=== PATIENT | female | born 1955 | race Caucasian/White ===

== ENCOUNTER 2016-02-29 04:20 | Inpatient (IN) | payer BC ==
[2016-02-29] MEDS ORDERED: MAGNESIUM SULFATE-D5W PMX 1 GM in DEXTROSE/WATER 1 100ML.BAG IVPB STA (04:26)
[2016-02-29] MEDS ORDERED: methylPREDNISolone SOD SUCCI 125 MG/2 ML VIAL IV STA (04:26)
[2016-02-29] MEDS ORDERED: IPRATROPIUM-ALBUTEROL 3 ML NEB INHALATION STA (04:26)
[2016-02-29] MEDS ORDERED: SODIUM CHLORIDE 0.9% 1,000 ML IV STA (04:26)
--- NOTE | 2016-02-29 04:30 | ED ---
SOB HPI - General Stated Complaint: RENZO Time Seen by Provider: 02/29/16 04:20 Source: patient, EMS, RN notes reviewed, old records reviewed - History of Present Illness Initial Comments: This is a 61-year-old female history of COPD who states she quit smoking about 2 or 3 weeks ago but still is had an occasional cigarette also has a history of elevated cholesterol hypothyroidism and hypertension who states she's had shortness of breath with difficulty breathing. She states she was in the emergency department 2 days ago for a number of hours and discharged to home medications which she has taken she states tonight that she's got severe cough shortness of breath chills and some sweats cough is associated dry. She also some chest discomfort from the cough she states she was brought in by EMS. She states she's feeling only slight improvement after the nebulizer treatment that was given. MD Complaint: shortness of breath, cough - Related Data Home Medications Medication Instructions Recorded Confirmed Atorvastatin [Lipitor] 40 mg PO QAM 09/21/13 02/27/16 Levothyroxine Sodium [Synthroid] 175 mcg PO QAM 09/21/13 02/27/16 Lisinopril-Hctz 10-12.5 mg 1 tab PO QAM 11/27/14 02/27/16 [Zestoretic 10-12.5] Previous Rx's Medication Instructions Recorded Albuterol Inhaler [Ventolin Hfa 2 puff INHALATION Q4HR PRN #1 12/13/15 Inhaler] inhaler predniSONE 20 mg PO BID #10 tab 12/13/15 Albuterol Nebulized [Ventolin 2.5 mg INHALATION Q4H PRN #25 nebu 02/27/16 Nebulized] Albuterol Sulfate [Proair Hfa] 1 - 2 puff INHALATION Q4H PRN #1 02/27/16 inhaler predniSONE 50 mg PO DAILY #5 tab 02/27/16 Allergies Allergy/AdvReac Type Severity Reaction Status Date / Time No Known Allergies Allergy Verified 02/27/16 05:58 Review of Systems ROS Statement: Those systems with pertinent positive or pertinent negative responses have been documented in the HPI. ROS Other: All systems not noted in ROS Statement are negative. Past Medical History Past Medical History: Hyperlipidemia, Hypertension, Thyroid Disorder History of Any Multi-Drug Resistant Organisms: None Reported Past Surgical History: Cholecystectomy, Orthopedic Surgery, Tonsillectomy Additional Past Surgical History / Comment(s): THYROIDECTOMY. Past Anesthesia/Blood Transfusion Reactions: Motion Sickness, Postoperative Nausea & Vomiting (PONV) Past Psychological History: No Psychological Hx Reported Smoking Status: Current every day smoker Past Alcohol Use History: None Reported Past Drug Use History: None Reported - Past Family History Brother(s) Family Medical History: Cancer Sister(s) Family Medical History: Cancer General Exam - General Exam Comments Initial Comments: This a well-developed well-nourished awake alert oriented 3 female General appearance: alert, anxious, in distress Head exam: Present: atraumatic, normocephalic, normal inspection Eye exam: Present: normal appearance, PERRL, EOMI. Absent: scleral icterus, conjunctival injection, periorbital swelling ENT exam: Present: normal exam, mucous membranes moist Neck exam: Present: normal inspection. Absent: tenderness, meningismus, lymphadenopathy Respiratory exam: Present: respiratory distress, wheezes, decreased breath sounds. Absent: rales, rhonchi, stridor, chest wall tenderness Cardiovascular Exam: Present: normal rhythm, tachycardia, normal heart sounds. Absent: systolic murmur, diastolic murmur, rubs, gallop, clicks GI/Abdominal exam: Present: soft, normal bowel sounds. Absent: distended, tenderness, guarding, rebound, rigid Extremities exam: Present: normal inspection, full ROM, normal capillary refill. Absent: tenderness, pedal edema, joint swelling, calf tenderness Back exam: Present: normal inspection Neurological exam: Present: alert, oriented X3, CN II-XII intact Psychiatric exam: Present: normal affect, normal mood Skin exam: Present: warm, dry, intact, normal color. Absent: rash Course Vital Signs 02/29/16 02/29/16 02/29/16 04:24 05:15 05:26 Temperature 97.2 F L Pulse Rate 111 H 99 104 H Respiratory 20 Rate Blood Pressure 154/82 O2 Sat by Pulse 94 L Oximetry 02/29/16 02/29/16 05:37 06:00 Temperature Pulse Rate 101 H 96 Respiratory 16 18 Rate Blood Pressure 145/65 136/77 O2 Sat by Pulse 95 96 Oximetry - Reevaluation(s) Reevaluation #1: 02/29/16 07:25 Reevaluation patient reveals her to feeling somewhat better she denies any chest pain. Reevaluation #2: 02/29/16 07:26 CAT scan shows no evidence of acute pulmonary embolism there is evidence of pulmonary vascular congestion however consistent with congestive heart failure. Medical Decision Making - Medical Decision Making I did reevaluate the patient several occasions I did a long discussion with her and her family regarding the findings. Patient be admitted for evaluation by cardiology. - Lab Data Result diagrams: 02/29/16 04:31 02/29/16 04:31 Lab Results 02/29/16 02/29/16 02/29/16 Range/Units 04:31 04:31 04:31 WBC 10.8 H (3.8-10.6) k/uL RBC 4.04 (3.80-5.40) m/uL Hgb 11.7 (11.4-16.0) gm/dL Hct 35.1 (34.0-46.0) % MCV 87.0 (80.0-100.0) fL MCH 28.9 (25.0-35.0) pg MCHC 33.2 (31.0-37.0) g/dL RDW 13.7 (11.5-15.5) % Plt Count 286 (150-450) k/uL Neutrophils % 84 % Lymphocytes % 10 % Monocytes % 4 % Eosinophils % 1 % Basophils % 0 % Neutrophils # 9.1 H (1.3-7.7) k/uL Lymphocytes # 1.0 (1.0-4.8) k/uL Monocytes # 0.4 (0-1.0) k/uL Eosinophils # 0.1 (0-0.7) k/uL Basophils # 0.0 (0-0.2) k/uL PT (9.0-12.0) sec INR (<1.1) APTT (22.0-30.0) sec D-Dimer (<0.60) mg/L FEU Sodium 143 (137-145) mmol/L Potassium 3.8 (3.5-5.1) mmol/L Chloride 109 H (98-107) mmol/L Carbon Dioxide 25 (22-30) mmol/L Anion Gap 9 mmol/L BUN 19 H (7-17) mg/dL Creatinine 1.00 (0.52-1.04) mg/dL Est GFR (MDRD) Af Amer >60 (>60 ml/min/1.73 sqM) Est GFR (MDRD) Non-Af 56 (>60 ml/min/1.73 sqM) Glucose 109 H (74-99) mg/dL Calcium 8.7 (8.4-10.2) mg/dL Magnesium 1.9 (1.6-2.3) mg/dL Total Bilirubin 0.3 (0.2-1.3) mg/dL AST 36 (14-36) U/L ALT 40 (9-52) U/L Alkaline Phosphatase 83 (38-126) U/L Total Creatine Kinase 81 (30-135) U/L CK-MB (CK-2) 1.0 (0.0-2.4) ng/mL CK-MB (CK-2) Rel Index 1.2 Troponin I <0.012 (0.000-0.034) ng/mL NT-Pro-B Natriuret Pep pg/mL Total Protein 6.2 L (6.3-8.2) g/dL Albumin 3.8 (3.5-5.0) g/dL 02/29/16 02/29/16 Range/Units 04:31 04:31 WBC (3.8-10.6) k/uL RBC (3.80-5.40) m/uL Hgb (11.4-16.0) gm/dL Hct (34.0-46.0) % MCV (80.0-100.0) fL MCH (25.0-35.0) pg MCHC (31.0-37.0) g/dL RDW (11.5-15.5) % Plt Count (150-450) k/uL Neutrophils % % Lymphocytes % % Monocytes % % Eosinophils % % Basophils % % Neutrophils # (1.3-7.7) k/uL Lymphocytes # (1.0-4.8) k/uL Monocytes # (0-1.0) k/uL Eosinophils # (0-0.7) k/uL Basophils # (0-0.2) k/uL PT 9.4 (9.0-12.0) sec INR 0.9 (<1.1) APTT 24.8 (22.0-30.0) sec D-Dimer 1.21 H (<0.60) mg/L FEU Sodium (137-145) mmol/L Potassium (3.5-5.1) mmol/L Chloride (98-107) mmol/L Carbon Dioxide (22-30) mmol/L Anion Gap mmol/L BUN (7-17) mg/dL Creatinine (0.52-1.04) mg/dL Est GFR (MDRD) Af Amer (>60 ml/min/1.73 sqM) Est GFR (MDRD) Non-Af (>60 ml/min/1.73 sqM) Glucose (74-99) mg/dL Calcium (8.4-10.2) mg/dL Magnesium (1.6-2.3) mg/dL Total Bilirubin (0.2-1.3) mg/dL AST (14-36) U/L ALT (9-52) U/L Alkaline Phosphatase (38-126) U/L Total Creatine Kinase (30-135) U/L CK-MB (CK-2) (0.0-2.4) ng/mL CK-MB (CK-2) Rel Index Troponin I (0.000-0.034) ng/mL NT-Pro-B Natriuret Pep 1740 pg/mL Total Protein (6.3-8.2) g/dL Albumin (3.5-5.0) g/dL - EKG Data -: EKG Interpreted by Ks EKG shows normal: sinus rhythm (Sinus tachycardia with rate 104. Ago 170 QRS duration 146 daily since QTC of 394/518 a bundle-branch block pattern no acute ST-T wave changes) - Radiology Data Radiology results: report reviewed (Evaluation CAT scan x-ray show evidence of congestive failure no pulmonary embolism.), image reviewed Critical Care Time Critical Care Time: Yes Critical Care Time: 37 minutes of critical care time which includes initial monitoring the EMS call as well as discussed with paramedics. Evaluation patient with history physical lab and x-ray as well as CAT scan evaluation. Reevaluation of the patient on multiple occasions. Discussion with patient family admission orders discussed with the admitting physician documentation of the above. Disposition Clinical Impression: Congestive heart failure, Adult respiratory distress syndrome, Acute exacerbation of chronic obstructive airways disease Disposition: ADMITTED IP TO THIS HOSP Condition: Stable
[2016-02-29 04:48] LABS: Basophils % (A) 0 %; CH 28.9; CHCM 33.4; Eosinophils # (A) 0.1 k/uL (0-0.7); Eosinophils % (A) 1 %; HCT 35.1 % (34.0-46.0); HGB 11.7 gm/dL (11.4-16.0); Luc # (Auto) 0.13; Luc % (Auto) 1; Lymphocytes % (A) 10 %; MCH 28.9 pg (25.0-35.0); MCHC 33.2 g/dL (31.0-37.0); Mean Platelet Volume 6.3; Monocytes # (A) 0.4 k/uL (0-1.0); Monocytes % (A) 4 %; Neutrophils # (A) 9.1 k/uL (1.3-7.7); Neutrophils % (A) 84 %; RBC 4.04 m/uL (3.80-5.40); RDW 13.7 % (11.5-15.5); WBC 10.8 k/uL (3.8-10.6); WBC (Perox) 10.89
[2016-02-29 05:08] LABS: ALT 40 U/L (9-52); AST 36 U/L (14-36); Alkaline Phosphatase 83 U/L (38-126); Anion Gap 9 mmol/L; Blood Urea Nitrogen 19 mg/dL (7-17); Calcium 8.7 mg/dL (8.4-10.2); Carbon Dioxide 25 mmol/L (22-30); Chloride 109 mmol/L (98-107); Glucose 109 mg/dL (74-99); Magnesium 1.9 mg/dL (1.6-2.3); Non-African American GFR(MDRD) 56 (>60 ml/min/1.73 sqM); Potassium 3.8 mmol/L (3.5-5.1); Sodium 143 mmol/L (137-145); Total Bilirubin 0.3 mg/dL (0.2-1.3); Total Protein 6.2 g/dL (6.3-8.2)
[2016-02-29 05:09] LABS: INR 0.9 (<1.1); Partial Thromboplastin Time 24.8 sec (22.0-30.0); Prothrombin Time 9.4 sec (9.0-12.0)
[2016-02-29 05:22] LABS: Creatine Kinase 81 U/L (30-135)
[2016-02-29 05:35] LABS: Troponin I <0.012 ng/mL (0.000-0.034)
--- NOTE | 2016-02-29 05:42 | XR ---
EXAMINATION TYPE: XR chest 2V DATE OF EXAM: 02/29/2016 5:15 AM COMPARISON: 02/27/2016 HISTORY: Difficulty breathing TECHNIQUE: Frontal and lateral views of the chest are obtained. FINDINGS: Heart is slightly enlarged. There is some pulmonary vascular congestion and pulmonary inte rstitial edema. There is slight blunting of the costophrenic angles. IMPRESSION: There is new pulmonary interstitial edema compared to last exam that could relate to acu te heart failure.
[2016-02-29] MEDS ORDERED: RX INFO: IV CONTRAST WAS GIVEN 1 EACH MISC MISCELLANE PRN (06:26)
--- NOTE | 2016-02-29 06:59 | CT ---
EXAMINATION TYPE: CT angio chest DATE OF EXAM: 02/29/2016 6:43 AM COMPARISON: NONE HISTORY: Elevated D-dimer CT DLP: 660 mGycm Automated exposure control for dose reduction was used. CONTRAST: CTA scan of the thorax is performed with IV Contrast, patient injected with 80 mL of Omnipaque 350, p ulmonary embolism protocol. MIP images are created and reviewed. 3D reconstructed images are create d on an independent workstation and reviewed. FINDINGS: There are bilateral pleural effusions. There is a small pericardial effusion. Heart is enlarged. Ther e is pulmonary interstitial edema with thickening of the interlobular septa. There is normal contrast opacification of the pulmonary arteries. I see no filling defects. There is no evidence of aortic an eurysm or dissection. There is no mediastinal adenopathy. There are no hilar masses. IMPRESSION: NO EVIDENCE OF PULMONARY EMBOLISM. PULMONARY INTERSTITIAL EDEMA AND BILATERAL PLEURAL EFFUSIONS CONSI STENT WITH CONGESTIVE HEART FAILURE. SMALL PERICARDIAL EFFUSION.
[2016-02-29] MEDS ORDERED: SODIUM CHLORIDE 0.9% 1,000 ML IV SCH (07:30)
[2016-02-29] MEDS ORDERED: HEPARIN SODIUM,PORCINE 5,000 UNIT/ML 1 ML VIAL SQ SCH (08:00)
[2016-02-29] MEDS ORDERED: IPRATROPIUM-ALBUTEROL 3 ML NEB INHALATION SCH (08:00)
[2016-02-29] MEDS ORDERED: FUROSEMIDE 10 MG/ML 4 ML VIAL IV SCH (08:00)
[2016-02-29] MEDS ORDERED: NITROGLYCERIN OINT 1 INCH/GM PACKET TOPICAL SCH (09:00)
[2016-02-29] MEDS: IPRATROPIUM-ALBUTEROL 3 ML NEB INHALATION SCH ×3 (11:57→20:05)
[2016-02-29] MEDS: ATORVASTATIN 40 MG TAB PO SCH (12:21)
[2016-02-29] MEDS: LISINOPRIL-HCTZ 10-12.5 MG 1 EACH TAB PO SCH (12:21)
[2016-02-29] MEDS: LEVOTHYROXINE 100 MCG TAB PO SCH ×2 (12:21→13:22)
[2016-02-29] MEDS: ASPIRIN 81 MG CHEW PO SCH (12:21)
[2016-02-29] MEDS: methylPREDNISolone SOD SUCCI 125 MG/2 ML VIAL IV SCH ×3 (12:22→23:55)
[2016-02-29] MEDS: LEVOTHYROXINE 75 MCG TAB PO SCH ×2 (12:22→13:22)
[2016-02-29] MEDS: AZITHROMYCIN 500 MG in SODIUM CHLORIDE 0.9% 250 ML IVPB SCH (13:23)
[2016-02-29] MEDS: HEPARIN SODIUM,PORCINE 5,000 UNIT/ML 1 ML VIAL SQ SCH ×2 (16:00→23:55)
--- NOTE | 2016-02-29 16:04 | HP ---
DATE OF ADMISSION: CHIEF COMPLAINT: Shortness of breath and chest pain. HISTORY OF PRESENT ILLNESS: This is a 61-year-old female with past medical history significant for COPD, presents to the hospital with shortness of breath and new onset chest pain. 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 Appropriate imaging was done and patient was prescribed prednisone 50 mg once daily for 5 days along with albuterol inhaler and nebulizer treatment and was discharged home. The patient felt worsening cough, felt that prednisone helped a little bit, but on Tuesday night she started having some chest tightness, which she felt at the beginning to be related to her ongoing cough, but patient felt that the shortness of breath and the chest pain is too much to tolerate at home and presented to the emergency department. In the emergency department, her d-dimer was elevated and CT of the chest was done which showed no evidence of pulmonary embolism with the pulmonary interstitial edema and bilateral pleural effusion consistent with congestive heart failure with small pericardial effusion. Chest x-ray showed new pulmonary interstitial edema compared to last exam that could relate to acute heart failure. Patient said that since Tuesday she has been able to do sleep in the normal position which is on her left or right side as patient had chronic back pain and cannot sleep on her back. Said that her sleep was interrupted by spells of coughing where she was unable to bring any phlegm up and said that this most likely dry hacking cough. The patient has been in contact with sick people. Denied any recent history of pneumonia, but said that she had exacerbation of her chronic obstructive pulmonary disease back in November where she was given the diagnosis by her primary care physician, Dr. Bella. Patient denied any fever or chills. Denied any nausea, vomiting, abdominal pain, change in bowel movement, change in the urine color or stool color. REVIEW OF SYSTEMS: All 14 systems reviewed and negative except as above. HOME MEDICATIONS: 1. Lipitor 40 mg p.o. daily. 2. Synthroid 175 micrograms p.o. daily. 3. Lisinopril with hydrochlorothiazide 10/12.5 p.o. daily. 4. Recent medication diagnosed prescribed by emergency department as mentioned above. ALLERGIES: No known drug allergies. PAST MEDICAL AND SURGICAL HISTORY: 1. Hypertension. 2. Hyperlipidemia. 3. Hypothyroidism. 4. Cholecystectomy. 5. Orthopedic surgery. 6. Tonsillectomy. 7. Thyroidectomy. 8. Motion sickness. SOCIAL HISTORY: Patient has been a smoker for 36 years and recently has been going down to 2 cigarettes a day and trying hard to quit. No alcohol or drug abuse. FAMILY HISTORY: Significant for coronary artery disease in her father who at age 57 and her brother with heart attack age 41, her other brother who had heart attack recently but of cancer. PHYSICAL EXAMINATION: VITAL SIGNS: 97.2, heart rate of 99, respiratory rate 20, blood pressure 154/82, saturation is 94% on room air. GENERAL: Her stated age, obese in no acute distress. HEENT: Atraumatic, normocephalic. PERRLA. LUNGS: Diminished bilaterally with decreased air entry, fine crackles on the bibasilar bases. EXTREMITIES: Lower extremity no edema. SKIN: No new rash. PSYCH: Alert and oriented x3. ABDOMEN: Soft, no tenderness, positive bowel sounds in all 4 quadrants. NEURO: No focal deficit. Cranial nerves II through XII are intact. Normal deep tendon reflexes and sensation. SKIN: No obvious rash. ASSESSMENT AND PLAN: 1. Dyspnea with multifactorial etiology including chronic obstructive pulmonary disease exacerbation along with congestive heart failure exacerbation. The patient with no previous history of congestive heart failure, but her chest x-ray, blood work and suggestive for of fluid overload status. I would like to start patient on Lasix. Consult cardiology and optimize her medical management. Obtain 2-D echo and monitor her I's and O's and daily weight. Other etiology could be related to chronic obstructive pulmonary disease exacerbation. Patient responded well to prednisone. I would like to switch her to Solu-Medrol during her hospital stay to have faster response and switch her to oral steroids upon discharge to home. I would like to start patient on Z-Matias given her persistent cough and obtain sputum culture if possible. 2. Chronic obstructive pulmonary disease with exacerbation as above. 3. Congestive heart failure exacerbation as above. 4. Hypertension. We will continue with home medication goal for less than 140/90 during the hospital stay. 5. Hyperlipidemia. We will continue statin and check a lipid panel. 6. Hypothyroidism. Will check on TSH and continue her home Synthroid dose. 7. Obesity. Patient counseled regarding weight loss and healthy lifestyle. 8. Tobacco dependency. Patient counseled regarding smoking cessation and said that she is ready to quit on . 9. Mild leukocytosis. We will continue monitoring. 10. Discharge planning based on clinical progress.
--- NOTE | 2016-02-29 16:24 | CONS ---
DATE OF CONSULTATION: ATTENDING: Dr. Bella. Mrs. Ceja is a 61-year-old female with known history of hypertension, hyperlipidemia, chronic tobacco use, about 2 packs a day and history of chronic obstructive lung disease, who presented with symptoms of progressive dyspnea and cough. Her symptoms started a few days ago, got much worse yesterday, coughing and quite dyspneic. She had chills but no documented fever. She was having yesterday some chest discomfort when she coughs. She came into the emergency room and subsequently admitted. She denies any peripheral edema. No PND. No orthopnea. She has no history of cardiac disease. She has some dyspnea on exertion, but no exertional chest pain. She has no history of dizziness or syncope. She had some palpitation yesterday with the coughing. Her coronary risk factors are remarkable for hypertension and hyperlipidemia. She is a smoker. She is nondiabetic. She has underwent a myocardial perfusion imaging about 2 years ago that was unremarkable. Her medications at home include prednisone, lisinopril HCT 10/12.5 mg daily, Synthroid 0.175 mg daily, Lipitor 40 mg daily in addition to albuterol and Proair. REVIEW OF SYSTEMS: RESPIRATORY: She has the history of chronic obstructive lung disease, history of chronic tobacco use. GI system: No recent GI bleeding. No peptic ulcer disease. system: No dysuria or hematuria. Nervous system: No stroke or seizure. PHYSICAL EXAMINATION: A 61-year-old female, alert and oriented, no apparent distress. Blood pressure 149/90 with a heart in the 80s. HEAD: Normocephalic. EYES: Sclerae anicteric. NECK: Good upstroke. No bruit. LUNGS: With decreased air exchange. No wheezes. HEART: Regular rate rhythm. S1, S2, no S3, with systolic murmur at the base. No diastolic murmur. No rub. ABDOMEN: Soft, nontender, positive bowel sounds. No organomegaly. EXTREMITIES: No edema. Intact distal pulses. Lab data revealed BUN and creatinine 19 and 1.0. D-dimer 1.2. Troponin less than 0.012. NT-proBNP of 1740. Hemoglobin of 11.7, white blood cells of 10.8. CT angiogram of the chest revealed no evidence of pulmonary embolism. There was mild pulmonary interstitial edema. EKG revealed a sinus mechanism with a rate of 104 with a left bundle branch block. Chest x-ray revealed interstitial edema. IMPRESSION: 1. Symptoms of progressive dyspnea with exacerbation of chronic obstructive pulmonary disease and element of congestive heart failure. Her systolic function is unavailable to me. It is possible that the exacerbation of his chronic obstructive pulmonary disease and tracheobronchitis that has been factor for her symptoms of heart failure although fluid overload does not appear to be severe at this time. 2. History of chronic tobacco use. 3. History of hypertension. 4. Hyperlipidemia. RECOMMENDATIONS: Will continue on the IV diuresis. I will add to her regimen aspirin once a day. I will obtain echocardiogram with Doppler, follow her renal function closely and depending on her progress, further recommendation will be made. The importance of smoking cessation was discussed with the patient. Thank you for this consult. We will follow with you.
[2016-02-29] MEDS: FUROSEMIDE 10 MG/ML 4 ML VIAL IV SCH (20:34)
[2016-02-29] MEDS ORDERED: IPRATROPIUM-ALBUTEROL 3 ML NEB INHALATION PRN (21:23)
[2016-03-01 06:06] LABS: Glucose,Whole Blood 142 mg/dL (75-99)
[2016-03-01] MEDS: methylPREDNISolone SOD SUCCI 125 MG/2 ML VIAL IV SCH ×4 (06:30→23:28)
[2016-03-01] MEDS ORDERED: LEVOTHYROXINE 75 MCG TAB PO SCH (06:30)
[2016-03-01] MEDS: LEVOTHYROXINE 100 MCG TAB PO SCH (06:30)
[2016-03-01] MEDS: LEVOTHYROXINE 75 MCG TAB PO SCH (06:31)
[2016-03-01] MEDS: INSULIN LISPRO (humaLOG) 300 UNIT/3 ML VIAL SQ SCH ×4 (06:31→21:46)
[2016-03-01] MEDS: HEPARIN SODIUM,PORCINE 5,000 UNIT/ML 1 ML VIAL SQ SCH ×3 (07:32→23:28)
[2016-03-01] MEDS: ASPIRIN 81 MG CHEW PO SCH (07:32)
[2016-03-01] MEDS: LISINOPRIL-HCTZ 10-12.5 MG 1 EACH TAB PO SCH (07:32)
[2016-03-01] MEDS: ATORVASTATIN 40 MG TAB PO SCH (07:32)
[2016-03-01] MEDS: FUROSEMIDE 10 MG/ML 4 ML VIAL IV SCH (07:34)
[2016-03-01 07:37] LABS: Anion Gap 13 mmol/L; Blood Urea Nitrogen 20 mg/dL (7-17); Carbon Dioxide 29 mmol/L (22-30); Chloride 100 mmol/L (98-107); Glucose 130 mg/dL (74-99); Non-African American GFR(MDRD) >60 (>60 ml/min/1.73 sqM); Potassium 4.1 mmol/L (3.5-5.1); Sodium 142 mmol/L (137-145)
[2016-03-01] MEDS: IPRATROPIUM-ALBUTEROL 3 ML NEB INHALATION SCH ×4 (08:44→20:27)
[2016-03-01] MEDS: AZITHROMYCIN 500 MG in SODIUM CHLORIDE 0.9% 250 ML IVPB SCH (11:12)
[2016-03-01 11:47] LABS: Glucose,Whole Blood 144 mg/dL (75-99)
[2016-03-01 12:38] LABS: Hemoglobin A1C 5.1 % (4.2-6.1)
[2016-03-01 13:34] VITALS: BMI 38.3
[2016-03-01] MEDS: FUROSEMIDE 40 MG TAB PO SCH (15:17)
[2016-03-01 16:44] LABS: Glucose,Whole Blood 199 mg/dL (75-99)
[2016-03-01 20:40] LABS: Glucose,Whole Blood 126 mg/dL (75-99)
--- NOTE | 2016-03-01 21:22 | PN ---
Mrs. Ceja is a 61-year-old female with a history of chronic tobacco use, who presented with symptoms of progressive dyspnea and evidence consistent with exacerbation of COPD and bronchitis. She is feeling better this morning. She still has some dyspnea and cough, if she is not using her oxygen. Otherwise, she is ambulating. She denies any dizziness or palpitation. She denies any chest pain. She continues to be at this time on aspirin, Lipitor, furosemide 40 mg IV q.12 hours, lisinopril HCT 10/12.5 mg daily, methylprednisolone, ceftriaxone. PHYSICAL EXAMINATION: Blood pressure 132/60 with a heart in the 70s. LUNGS: With improved air exchange and decreased wheezing. HEART: Regular rate rhythm. S1, S2, no S3, no rub. ABDOMEN: Soft and nontender. EXTREMITIES: No edema. Lab data revealed BUN and creatinine 20 and 0.8. Potassium 4.1. Her NT-proBNP is 985. IMPRESSION: 1. Progressive dyspnea with exacerbation of chronic obstructive pulmonary disease. 2. Mild fluid overload, improving. 3. History of hypertension. 4. Hyperlipidemia. 5. Chronic tobacco use. RECOMMENDATIONS: I will switch her to oral diuretics. We will follow her renal function. Increase her level of activity, obtain an echocardiogram and depending on that, further recommendation will be made.
[2016-03-02] MEDS: LEVOTHYROXINE 75 MCG TAB PO SCH (05:50)
[2016-03-02] MEDS: LEVOTHYROXINE 100 MCG TAB PO SCH (05:50)
[2016-03-02] MEDS: methylPREDNISolone SOD SUCCI 125 MG/2 ML VIAL IV SCH ×2 (05:51→21:10)
[2016-03-02 06:22] LABS: Anion Gap 12 mmol/L; Blood Urea Nitrogen 24 mg/dL (7-17); Calcium 8.9 mg/dL (8.4-10.2); Carbon Dioxide 31 mmol/L (22-30); Chloride 98 mmol/L (98-107); Glucose 130 mg/dL (74-99); Non-African American GFR(MDRD) >60 (>60 ml/min/1.73 sqM); Potassium 4.1 mmol/L (3.5-5.1); Sodium 141 mmol/L (137-145)
[2016-03-02 06:23] LABS: Glucose,Whole Blood 150 mg/dL (75-99)
[2016-03-02] MEDS: INSULIN LISPRO (humaLOG) 300 UNIT/3 ML VIAL SQ SCH ×4 (06:29→21:09)
--- NOTE | 2016-03-02 07:42 | PN ---
INTERVAL HISTORY: Patient continues to be hemodynamically stable, felt improved since yesterday at least by 40% to 50%. No major events reported by nursing staff. Patient had decent sleep last night. PHYSICAL EXAMINATION: Vital signs reviewed and stable. LUNGS: Positive for bilateral lower bases crackles. HEART: Normal S1, S2. ABDOMEN: Soft, nontender, positive bowel sounds in all 4 quadrants. Lower extremity no edema. PSYCH: Alert and oriented x3. SKIN: No new rash. Imaging and labs revealed normal Chem-7 this morning with slightly elevated glucose at 199, hemoglobin A1c was found to be 5.1, troponin has been normal, BMP is 985 this morning,. Blood cultures are still pending, negative. ASSESSMENT AND PLAN: 1. Acute respiratory failure, multifactorial includin. Congestive heart failure with exacerbation. A 2-D echo is still pending. Will continue cardioprotective medication. Continue current diuretic dose, monitor I&O's, daily weight. Patient counseled regarding medication adherence, close followup outpatient and healthy diet with weight loss and exercise. Plan discussed with the patient in front of her who is motivated to help her with process after discharge. 3. Chronic obstructive pulmonary disease with exacerbation, will continue current regimen, continue antibiotics, breathing treatments. Patient seems to be improving. 4. Tobacco dependency. Patient is ready to quit cold turkey once she is out of the hospital. 5. Obesity. Weight loss and healthy life-style counseling ongoing. 6. Hypothyroidism, continue Synthroid. 7. Deep venous thrombosis prophylaxis, patient on heparin.
[2016-03-02] MEDS: IPRATROPIUM-ALBUTEROL 3 ML NEB INHALATION SCH ×4 (08:15→19:35)
[2016-03-02] MEDS: HEPARIN SODIUM,PORCINE 5,000 UNIT/ML 1 ML VIAL SQ SCH ×3 (08:47→23:40)
[2016-03-02] MEDS: FUROSEMIDE 40 MG TAB PO SCH ×2 (09:51→16:42)
[2016-03-02] MEDS: ASPIRIN 81 MG CHEW PO SCH (09:51)
[2016-03-02] MEDS: ATORVASTATIN 40 MG TAB PO SCH (09:51)
[2016-03-02] MEDS: LISINOPRIL-HCTZ 10-12.5 MG 1 EACH TAB PO SCH (09:51)
[2016-03-02] MEDS: AZITHROMYCIN 500 MG in SODIUM CHLORIDE 0.9% 250 ML IVPB SCH (11:22)
[2016-03-02 12:18] LABS: Glucose,Whole Blood 123 mg/dL (75-99)
--- NOTE | 2016-03-02 15:40 | P.PN ---
Subjective Principal diagnosis: COPD exacerbation This is a 61-year-old female with history of chronic nicotine dependence who presented to the hospital with symptoms of progressive dyspnea with evidence of exacerbation of COPD and bronchitis. Patient was seen and examined this morning she does state that her breathing is significantly improved. Continues to have oxygen on, she's been instructed be up ambulating in the hallway without oxygen so that we can monitor her oxygen levels and determine her need for O2. From a cardiac standpoint she has remained stable. Currently on by mouth Lasix. Objective - Vital Signs Vital signs: Vital Signs Temp 96.9 F L 03/02/16 12:00 Pulse 76 03/02/16 12:21 Resp 16 03/02/16 12:00 BP 136/71 03/02/16 12:00 Pulse Ox 96 03/02/16 12:00 Intake & Output 03/01/16 03/02/16 03/02/16 18:59 06:59 18:59 Intake Total 820 780 Output Total 600 1800 1300 Balance 220 -1800 -520 Weight 92 kg 91.4 kg Intake: IV 300 Azithromycin 500 mg In 250 Sodium Chloride 0.9% 250 ml @ 125 mls/hr IVPB Q24HR@1200 [facility] Rx#: [id number] cefTRIAXone 1,000 mg In 50 Sodium Chloride 0.9% 50 ml @ 100 mls/hr IVPB Q24HR [facility] Rx#:[id number] Oral 820 480 Output: Urine 600 1800 1300 Other: Voiding Method Toilet Toilet # Voids 200 # Bowel Movements 0 0 - Exam PHYSICAL EXAMINATION: HEENT: Head is atraumatic, normocephalic. Pupils equal, round. Neck is supple. There is no elevated jugular venous pressure. HEART EXAMINATION: Heart S1, S2 normal. No murmur or gallop heard. CHEST EXAMINATION: Lungs reveal decreased air exchange with fine expiratory wheezes. ABDOMEN: Soft, nontender. Bowel sounds are heard. No organomegaly noted. EXTREMITIES: 2+ peripheral pulses with no evidence of peripheral edema and no calf tenderness noted. NEUROLOGIC patient is awake, alert and oriented -3. . - Labs CBC & Chem 7: 02/29/16 04:31 03/02/16 05:23 Labs: Abnormal Lab Results - Last 24 Hours (Table) 03/01/16 03/01/16 03/02/16 Range/Units 16:43 20:39 05:23 Carbon Dioxide 31 H (22-30) mmol/L BUN 24 H (7-17) mg/dL Glucose 130 H (74-99) mg/dL POC Glucose (mg/dL) 199 H 126 H (75-99) mg/dL 03/02/16 03/02/16 Range/Units 06:21 11:54 Carbon Dioxide (22-30) mmol/L BUN (7-17) mg/dL Glucose (74-99) mg/dL POC Glucose (mg/dL) 150 H 123 H (75-99) mg/dL Assessment and Plan (1) Diastolic CHF, acute on chronic Status: Acute (2) Nicotine dependence Status: Acute (3) HTN (hypertension) Status: Acute (4) Hyperlipemia Status: Acute (5) Acute exacerbation of chronic obstructive airways disease Status: Acute Plan: From cardiology's perspective, we'll continue patient on her current medications. We will follow her with you now on an as-needed basis only, please don't hesitate to call with any questions. DNP note has been reviewed, I agree with a documented findings and plan of care. Patient was seen and examined.
[2016-03-02 17:04] LABS: Glucose,Whole Blood 114 mg/dL (75-99)
[2016-03-02 21:06] LABS: Glucose,Whole Blood 115 mg/dL (75-99)
[2016-03-03] MEDS: LEVOTHYROXINE 100 MCG TAB PO SCH (06:29)
[2016-03-03] MEDS: LEVOTHYROXINE 75 MCG TAB PO SCH (06:29)
--- NOTE | 2016-03-03 07:13 | PN ---
INTERVAL HISTORY: Patient feels at least 55% improved since presentation to the hospital, denying chest pain, nausea, vomiting, abdominal pain, dizziness, lightheadedness or blurry vision. Patient's shortness of breath has improved significantly. PHYSICAL EXAMINATION: VITAL SIGNS: Reviewed and stable. LUNGS: Diminished with decreased air entry. HEART: Normal S1, S2. ABDOMEN: Soft, no tenderness, positive bowel sounds. LOWER EXTREMITY: No edema. PSYCH: Alert, and oriented x3. IMAGING AND LABS: A 2-D echo is still not done yet and pending orders. ASSESSMENT AND PLAN: 1. Acute respiratory failure with hypoxia, multifactorial includin. Congestive heart failure with exacerbation, likely systolic, need to have 2-D echo and follow up result. Will continue cardioprotective medication. Continue diuretics. 3. Chronic obstructive pulmonary disease with exacerbation. I would like to decrease the dose of Solu-Medrol 260 twice daily, continue switching patient to oral to 60 daily for discharge home based on clinical progress. 4. Will continue antibiotics, breathing treatments and steroid-based inhaler. 5. Obesity, counseled regarding weight loss. 6. Questionable obstructive sleep apnea. Sleep study outpatient. 7. Tobacco dependency, ( ).
[2016-03-03 07:18] LABS: Glucose,Whole Blood 119 mg/dL (75-99)
[2016-03-03 07:50] VITALS: BP 119/75; RESP 16; TEMP 96.8
[2016-03-03] MEDS: IPRATROPIUM-ALBUTEROL 3 ML NEB INHALATION SCH (08:00)
[2016-03-03] MEDS: ASPIRIN 81 MG CHEW PO SCH (08:02)
[2016-03-03] MEDS: FUROSEMIDE 40 MG TAB PO SCH (08:02)
[2016-03-03] MEDS: LISINOPRIL-HCTZ 10-12.5 MG 1 EACH TAB PO SCH (08:02)
[2016-03-03] MEDS: methylPREDNISolone SOD SUCCI 125 MG/2 ML VIAL IV SCH (08:02)
[2016-03-03] MEDS: HEPARIN SODIUM,PORCINE 5,000 UNIT/ML 1 ML VIAL SQ SCH (08:02)
[2016-03-03] MEDS: ATORVASTATIN 40 MG TAB PO SCH (08:02)
[2016-03-03] MEDS: INSULIN LISPRO (humaLOG) 300 UNIT/3 ML VIAL SQ SCH ×2 (08:03→11:45)
[2016-03-03 08:19] VITALS: PULSE 80
--- NOTE | 2016-03-03 10:43 | ECHOF ---
Referral Reason:dyspnea MEASUREMENTS -------- HEIGHT: 154.9 cm WEIGHT: 91.6 kg BP: 124/71 RVIDd: 2.4 cm (< 3.3) IVSd: 1.1 cm (0.6 - 1.1) LVIDd: 4.9 cm (3.9 - 5.3) LVPWd: 1.1 cm (0.6 - 1.1) IVSs: 1.9 cm LVIDs: 3.4 cm LVPWs: 1.7 cm LA Diam: 3.3 cm (2.7 - 3.8) LAESV Index (A-L): 27.33 ml/m Ao Diam: 2.5 cm (2.0 - 3.7) AV Cusp: 1.5 cm (1.5 - 2.6) LA Diam: 3.1 cm (2.7 - 3.8) MV EXCURSION: 13.189 mm (> 18.000) MV EF SLOPE: 77 mm/s (70 - 150) EPSS: 1.1 cm MV E Murtaza: 1.56 m/s MV DecT: 219 ms MV A Murtaza: 1.10 m/s MV E/A Ratio: 1.43 AR PHT: 904 ms RAP: 5.00 mmHg RVSP: 11.16 mmHg FINDINGS -------- Sinus rhythm. This was a technically good study. There is borderline concentric left ventricular hypertrophy. Overall left ventricular systolic function is mild-moderately impaired with, an EF between 40 - 45 %. Basal inferoseptal LV wall motion is hypokinetic. Mid inferoseptal LV wall motion is hypokinetic. The right ventricle is normal in size. Normal LA size by volume 22+/-6 ml/m2. The right atrium is normal in size. The aortic valve is trileaflet and appears structurally normal. There is mild aortic regurgitation. The mitral valve leaflets are mildly thickened. Mild mitral annular calcification present. Moderate mitral regurgitation is present. Mild tricuspid regurgitation present. There is mild pulmonary hypertension. Pulmonic valve appears structurally normal. The aortic root size is normal. Normal inferior vena cava with normal inspiratory collapse consistent with estimated right atrial pressure of 5 mmHg. There is a small, generalized pericardial effusion present. CONCLUSIONS -------- 1. Sinus rhythm. 2. The aortic valve is trileaflet and appears structurally normal. 3. There is mild aortic regurgitation. 4. The mitral valve leaflets are mildly thickened. 5. Mild mitral annular calcification present. 6. Moderate mitral regurgitation is present. 7. Mild tricuspid regurgitation present. 8. There is mild pulmonary hypertension. 9. Pulmonic valve appears structurally normal. 10. The aortic root size is normal. 11. There is a small, generalized pericardial effusion present. 12. This was a technically good study. 13. There is borderline concentric left ventricular hypertrophy. 14. Overall left ventricular systolic function is mild-moderately impaired with, an EF between 40 - 45 %. 15. Basal inferoseptal LV wall motion is hypokinetic. 16. Mid inferoseptal LV wall motion is hypokinetic. 17. The right ventricle is normal in size. 18. Normal LA size by volume 22+/-6 ml/m2. 19. The right atrium is normal in size. DRUM BARKER OPERATOR: Lenny Milner RDCS
[2016-03-03 11:36] LABS: Glucose,Whole Blood 178 mg/dL (75-99)
[2016-03-03] MEDS ORDERED: AZITHROMYCIN 500 MG TAB PO SCH (12:00)
--- NOTE | 2016-03-04 10:18 | P.DS ---
Providers Date of admission: 02/29/16 07:29 Expected date of discharge: 03/03/16 Attending physician: Giselle Santiago Primary care physician: Lou Bella [facility] Course: This is a 61-year-old female patient of Dr. Dr. Bella with past medical history for COPD, hypertension, hyperlipidemia, hypothyroidism, tobacco use and dependence. Patient complains of shortness of breath along with chest pain. 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 She presented to [facility] for evaluation she was discharged home on prednisone and albuterol inhaler and nebulizer treatments. Unfortunately, patient felt worsening cough and did not feel the prednisone helped very much. She returned to [facility] emergency center. Her d-dimer was elevated. CT angiogram of the chest showed no evidence of pulmonary embolism. Pulmonary interstitial edema and bilateral pleural effusions consistent with heart failure. Small pericardial effusion.Chest x-ray showed new pulmonary and sisters to show edema compared with last eye exam. She states she was having problems sleeping due to spells of coughing that were nonproductive with a dry hacking cough. Patient was seen in consultation by Dr. Simental from cardiology she was treated with IV Lasix as well as IV Solu-Medrol, DuoNeb treatments and inhaled steroids. Echocardiogram reveals mild aortic regurgitation, moderate mitral regurgitation, mild tricuspid regurgitation, mild pulmonary hypertension, small generalized pericardial effusion, borderline concentric left ventricular hypertrophy, EF 40-45%. Patient's respiratory status continued to improve and she was switched over to oral prednisone and oral Lasix. Patient was discharged home in stable condition. Discharge diagnoses: 1. Acute dyspnea (pulse ox 94% on 2L) secondary to acute exacerbation of COPD and acute on chronic diastolic heart failure. 2. Hypertension. 3. Hyperlipidemia 4. Hypothyroidism 5. Obesity 6. Tobacco use and dependence Discharge plan: Return home Impression and plan of care have been directed as dictated by the signing physician. Freida Diez nurse practitioner acting as scribe for signing physician. Patient Condition at Discharge: Good Plan - Discharge Summary New Discharge Prescriptions: Furosemide [Lasix] 20 mg PO DAILY #30 tab methylPREDNISolone Dose Pack [Medrol Dose Pack] 4 mg PO DIRECTED #21 package Discharge Medication List Atorvastatin [Lipitor] 40 mg PO QAM 09/21/13 [History] Levothyroxine Sodium [Synthroid] 175 mcg PO QAM 09/21/13 [History] Lisinopril-Hctz 10-12.5 mg [Zestoretic 10-12.5] 1 tab PO BID 11/27/14 [History] Albuterol Nebulized [Ventolin Nebulized] 2.5 mg INHALATION RT-Q4H PRN 02/29/16 [ History] Albuterol Sulfate [Proair Hfa] 1 - 2 puff INHALATION RT-Q4H PRN 02/29/16 [ History] Aspirin 81 mg PO DAILY chew 03/03/16 [Rx] Furosemide [Lasix] 20 mg PO DAILY #30 tab 03/03/16 [Rx] methylPREDNISolone Dose Pack [Medrol Dose Pack] 4 mg PO DIRECTED #21 package 03/03/16 [Rx] Follow up Appointment(s)/Referral(s): Danay Simental MD [STAFF PHYSICIAN] - 2 Weeks Lou Bella MD [Primary Care Provider] - 1 Week Patient Instructions/Handouts: COPD (Chronic Obstructive Pulmonary Disease) (DC ) Discharge Disposition: HOME SELF-CARE
== END 2016-03-03 12:33 | disposition home or self-care (01) | DRG 291 ==
LOC: EC 04:20 → 6SEL 07:29 → 4MS4W 03-02 16:30
PROVIDERS: ADMIT Internal Medicine; ATTEND Internal Medicine
DX: I11.0 Hypertensive heart disease with heart failure (principal); J96.01 Acute respiratory failure with hypoxia; J44.1 Chronic obstructive pulmonary disease with (acute) exacerbation; I50.33 Acute on chronic diastolic (congestive) heart failure; I27.2 Other secondary pulmonary hypertension; D72.829 Elevated white blood cell count, unspecified; E03.9 Hypothyroidism, unspecified; E66.9 Obesity, unspecified; E78.00 Pure hypercholesterolemia, unspecified; E78.5 Hyperlipidemia, unspecified; F17.200 Nicotine dependence, unspecified, uncomplicated; G89.29 Other chronic pain; M54.9 Dorsalgia, unspecified; G47.33 Obstructive sleep apnea (adult) (pediatric); I08.3 Combined rheumatic disorders of mitral, aortic and tricuspid valves; Z79.52 Long term (current) use of systemic steroids; Z79.899 Other long term (current) drug therapy; Z82.49 Family history of ischemic heart disease and other diseases of the circulatory system
CPT/HCPCS: 36415; 71020; 71275; 80048; 80053; 82550; 82553; 83036; 83735; 83880; 84484; 85025; 85379; 85610; 85730; 87040; 93005; 93306; 94640; 94760; 96361; 96365; 96375; 99291

== ENCOUNTER 2016-03-08 06:08 | Observation (INO) | payer BC ==
[2016-03-08] MEDS ORDERED: NITROGLYCERIN OINT 1 INCH/GM PACKET TOPICAL STA (06:12)
--- NOTE | 2016-03-08 06:15 | ED ---
General Adult HPI - General Source: RN notes reviewed <Alirio Lara - Last Filed: 03/08/16 06:40> <Mark Adam - Last Filed: 03/08/16 09:29> - General Stated complaint: chest pain Time Seen by Provider: 03/08/16 06:08 - History of Present Illness Initial comments: This is a 61-year-old female with a past medical history significant for smoking and high blood pressure and high cholesterol as well as COPD. Patient was released from the hospital about 1 week ago and she was in for COPD and congestive heart failure. Patient comes in today because she was having chest pain which is radiating to her jaw she states she was also sweaty while occurred. Patient states last about 15 minutes she took some aspirin and the pain went away. Patient denies any difficulty breathing. Patient denies any nausea. Patient denies any palpitations. Patient denies any recent fever chills or cough. Patient denies any abdominal pain patient denies nausea vomiting diarrhea per patient denies any calf pain patient denies any leg swelling. Patient denies headache patient denies numbness weakness. Patient denies any lightheadedness dizziness or near syncopal episode. (Alirio Lara) - Related Data Home Medications Medication Instructions Recorded Confirmed Atorvastatin [Lipitor] 40 mg PO QAM 09/21/13 03/08/16 Levothyroxine Sodium [Synthroid] 175 mcg PO QAM 09/21/13 03/08/16 Lisinopril-Hctz 10-12.5 mg 1 tab PO BID 11/27/14 03/08/16 [Zestoretic 10-12.5] Albuterol Nebulized [Ventolin 2.5 mg INHALATION RT-Q4H PRN 02/29/16 03/08/16 Nebulized] Albuterol Sulfate [Proair Hfa] 1 - 2 puff INHALATION RT-Q4H PRN 02/29/16 Previous Rx's Medication Instructions Recorded Aspirin 81 mg PO DAILY chew 03/03/16 Furosemide [Lasix] 20 mg PO DAILY #30 tab 03/03/16 methylPREDNISolone Dose Pack 4 mg PO DIRECTED #21 package 03/03/16 [Medrol Dose Pack] Allergies Allergy/AdvReac Type Severity Reaction Status Date / Time No Known Allergies Allergy Verified 03/08/16 07:39 Review of Systems ROS Other: All systems not noted in ROS Statement are negative. <Alirio Lara - Last Filed: 03/08/16 06:40> ROS Other: All systems not noted in ROS Statement are negative. <Mark Adam - Last Filed: 03/08/16 09:29> ROS Statement: Those systems with pertinent positive or pertinent negative responses have been documented in the HPI. Past Medical History Past Medical History: COPD, Hyperlipidemia, Hypertension, Thyroid Disorder History of Any Multi-Drug Resistant Organisms: None Reported Past Surgical History: Cholecystectomy, Orthopedic Surgery, Tonsillectomy Additional Past Surgical History / Comment(s): THYROIDECTOMY. Past Anesthesia/Blood Transfusion Reactions: Motion Sickness, Postoperative Nausea & Vomiting (PONV) Past Psychological History: No Psychological Hx Reported Smoking Status: Current every day smoker Past Alcohol Use History: None Reported Past Drug Use History: None Reported - Past Family History Brother(s) Family Medical History: Cancer Sister(s) Family Medical History: Cancer <Alirio Lara - Last Filed: 03/08/16 06:40> General Exam <Alirio Lara - Last Filed: 03/08/16 06:40> <Mark Adam - Last Filed: 03/08/16 09:29> - General Exam Comments Initial Comments: GENERAL: Patient is well-developed and well-nourished. Patient is nontoxic and well- hydrated and is in no acute distress. ENT: Neck is soft and supple. No significant lymphadenopathy is noted. Oropharynx is clear. Moist mucous membranes. Neck has full range of motion without eliciting any pain. EYES: The sclera were anicteric and conjunctiva were pink and moist. Extraocular movements were intact and pupils were equal round and reactive to light. Eyelids were unremarkable. PULMONARY: Unlabored respirations. Good breath sounds bilaterally. No audible rales rhonchi or wheezing was noted. CARDIOVASCULAR: There is a regular rate and rhythm without any murmurs gallops or rubs. ABDOMEN: Soft and nontender with normal bowel sounds. No palpable organomegaly was noted. There is no palpable pulsatile mass. SKIN: Skin is clear with no lesions or rashes and otherwise unremarkable. NEUROLOGIC: Patient is alert and oriented x3. Cranial nerves II through XII are grossly intact. Motor and sensory are also intact. Normal speech, volume and content. Symmetrical smile. MUSCULOSKELETAL: Normal extremities with adequate strength and full range of motion. No lower extremity swelling or edema. No calf tenderness. LYMPHATICS: No significant lymphadenopathy is noted PSYCHIATRIC: Normal psychiatric evaluation. (Alirio Lara) Medical Decision Making <Alirio Lara - Last Filed: 03/08/16 06:40> - Lab Data Result diagrams: 03/08/16 06:40 03/08/16 06:40 <Milliejuan carlosMark - Last Filed: 03/08/16 09:29> - Medical Decision Making EKG shows normal sinus rhythm at 86 bpm OR interval is on a 74 QRS is on a 52 QT interval is 434 QTC is 519. Patient's EKG shows a left bundle branch block. Dr. Celis will be taking over the care of this patient at 7 AM (Alirio Lara) - Lab Data Lab Results 03/08/16 03/08/16 03/08/16 Range/Units 06:40 06:40 06:40 WBC 18.2 H (3.8-10.6) k/uL RBC 5.43 H (3.80-5.40) m/uL Hgb 15.4 D (11.4-16.0) gm/dL Hct 47.2 H (34.0-46.0) % MCV 86.8 (80.0-100.0) fL MCH 28.3 (25.0-35.0) pg MCHC 32.6 (31.0-37.0) g/dL RDW 13.3 (11.5-15.5) % Plt Count 470 H (150-450) k/uL Neutrophils % 74 % Lymphocytes % 19 % Monocytes % 5 % Eosinophils % 1 % Basophils % 0 % Neutrophils # 13.5 H (1.3-7.7) k/uL Lymphocytes # 3.4 (1.0-4.8) k/uL Monocytes # 0.9 (0-1.0) k/uL Eosinophils # 0.2 (0-0.7) k/uL Basophils # 0.0 (0-0.2) k/uL PT (9.0-12.0) sec INR (<1.1) APTT (22.0-30.0) sec Sodium 137 (137-145) mmol/L Potassium 4.3 (3.5-5.1) mmol/L Chloride 98 (98-107) mmol/L Carbon Dioxide 26 (22-30) mmol/L Anion Gap 13 mmol/L BUN 38 H (7-17) mg/dL Creatinine 1.05 H (0.52-1.04) mg/dL Est GFR (MDRD) Af Amer >60 (>60 ml/min/1.73 sqM) Est GFR (MDRD) Non-Af 53 (>60 ml/min/1.73 sqM) Glucose 119 H (74-99) mg/dL Calcium 9.4 (8.4-10.2) mg/dL Magnesium 2.1 (1.6-2.3) mg/dL Total Bilirubin 0.4 (0.2-1.3) mg/dL AST 20 (14-36) U/L ALT 51 (9-52) U/L Alkaline Phosphatase 82 (38-126) U/L Total Creatine Kinase <20 L (30-135) U/L CK-MB (CK-2) 0.3 (0.0-2.4) ng/mL CK-MB (CK-2) Rel Index 0.0 Troponin I <0.012 (0.000-0.034) ng/mL NT-Pro-B Natriuret Pep pg/mL Total Protein 7.2 (6.3-8.2) g/dL Albumin 4.4 (3.5-5.0) g/dL 03/08/16 03/08/16 Range/Units 06:40 06:40 WBC (3.8-10.6) k/uL RBC (3.80-5.40) m/uL Hgb (11.4-16.0) gm/dL Hct (34.0-46.0) % MCV (80.0-100.0) fL MCH (25.0-35.0) pg MCHC (31.0-37.0) g/dL RDW (11.5-15.5) % Plt Count (150-450) k/uL Neutrophils % % Lymphocytes % % Monocytes % % Eosinophils % % Basophils % % Neutrophils # (1.3-7.7) k/uL Lymphocytes # (1.0-4.8) k/uL Monocytes # (0-1.0) k/uL Eosinophils # (0-0.7) k/uL Basophils # (0-0.2) k/uL PT 10.0 (9.0-12.0) sec INR 1.0 (<1.1) APTT 22.9 (22.0-30.0) sec Sodium (137-145) mmol/L Potassium (3.5-5.1) mmol/L Chloride (98-107) mmol/L Carbon Dioxide (22-30) mmol/L Anion Gap mmol/L BUN (7-17) mg/dL Creatinine (0.52-1.04) mg/dL Est GFR (MDRD) Af Amer (>60 ml/min/1.73 sqM) Est GFR (MDRD) Non-Af (>60 ml/min/1.73 sqM) Glucose (74-99) mg/dL Calcium (8.4-10.2) mg/dL Magnesium (1.6-2.3) mg/dL Total Bilirubin (0.2-1.3) mg/dL AST (14-36) U/L ALT (9-52) U/L Alkaline Phosphatase (38-126) U/L Total Creatine Kinase (30-135) U/L CK-MB (CK-2) (0.0-2.4) ng/mL CK-MB (CK-2) Rel Index Troponin I (0.000-0.034) ng/mL NT-Pro-B Natriuret Pep 200 pg/mL Total Protein (6.3-8.2) g/dL Albumin (3.5-5.0) g/dL Disposition <Alirio Lara - Last Filed: 03/08/16 06:40> <Mark Adam - Last Filed: 03/08/16 09:29> Clinical Impression: Chest pain Disposition: ADMITTED IP TO THIS HOSP Condition: Fair
[2016-03-08 06:55] LABS: Basophils % (A) 0 %; CHCM 33.5; Eosinophils # (A) 0.2 k/uL (0-0.7); Eosinophils % (A) 1 %; HCT 47.2 % (34.0-46.0); HDW 2.51; Luc # (Auto) 0.23; Luc % (Auto) 1; Lymphocytes # (A) 3.4 k/uL (1.0-4.8); Lymphocytes % (A) 19 %; MCH 28.3 pg (25.0-35.0); MCHC 32.6 g/dL (31.0-37.0); MCV 86.8 fL (80.0-100.0); Mean Platelet Volume 6.4; Monocytes # (A) 0.9 k/uL (0-1.0); Monocytes % (A) 5 %; Neutrophils # (A) 13.5 k/uL (1.3-7.7); Neutrophils % (A) 74 %; RBC 5.43 m/uL (3.80-5.40); RDW 13.3 % (11.5-15.5); WBC 18.2 k/uL (3.8-10.6); WBC (Perox) 18.31
[2016-03-08 06:59] LABS: HGB 15.4 gm/dL (11.4-16.0)
--- NOTE | 2016-03-08 07:01 | XR ---
EXAMINATION TYPE: XR chest 2V DATE OF EXAM: 03/08/2016 6:52 AM COMPARISON: 02/29/2016 HISTORY: Chest pain history of CHF TECHNIQUE: Frontal and lateral views of the chest are obtained. FINDINGS: Mild atelectasis is suggested in the right lung base. There is no focal pneumonia, pleural effusion, or pneumothorax seen. The cardiac silhouette size is within normal limits. Mild degenerati ve changes in the thoracic spine. IMPRESSION: 1. No active lung infiltrates. 2. Mild atelectasis in the right lung base.
[2016-03-08 07:04] LABS: Partial Thromboplastin Time 22.9 sec (22.0-30.0)
[2016-03-08 07:13] LABS: ALT 51 U/L (9-52); AST 20 U/L (14-36); Alkaline Phosphatase 82 U/L (38-126); Anion Gap 13 mmol/L; Blood Urea Nitrogen 38 mg/dL (7-17); Calcium 9.4 mg/dL (8.4-10.2); Carbon Dioxide 26 mmol/L (22-30); Chloride 98 mmol/L (98-107); Glucose 119 mg/dL (74-99); Magnesium 2.1 mg/dL (1.6-2.3); Non-African American GFR(MDRD) 53 (>60 ml/min/1.73 sqM); Potassium 4.3 mmol/L (3.5-5.1); Sodium 137 mmol/L (137-145); Total Bilirubin 0.4 mg/dL (0.2-1.3); Total Protein 7.2 g/dL (6.3-8.2)
[2016-03-08 07:27] LABS: Creatine Kinase <20 U/L (30-135)
[2016-03-08 07:40] LABS: Creatine Kinase MB 0.3 ng/mL (0.0-2.4); Troponin I <0.012 ng/mL (0.000-0.034)
[2016-03-08] MEDS ORDERED: ENOXAPARIN 100 MG/ML SYRINGE SQ STA (08:47)
[2016-03-08] MEDS ORDERED: NITROGLYCERIN SL TABS 0.4 MG TAB SUBLINGUAL PRN ×2 (08:47→16:12)
[2016-03-08] MEDS ORDERED: ALBUTEROL INHALER 60 PUFF/8 GM INHALER INHALATION PRN (08:49)
[2016-03-08] MEDS ORDERED: ALBUTEROL NEBULIZED 2.5 MG/3 ML INHALATION PRN (08:56)
[2016-03-08] MEDS ORDERED: methylPREDNISolone 4 MG TAB TAPER PO SCH (09:00)
[2016-03-08] MEDS: FUROSEMIDE 20 MG TAB PO SCH ×2 (11:46→14:54)
[2016-03-08] MEDS: LISINOPRIL-HCTZ 10-12.5 MG 1 EACH TAB PO SCH ×3 (11:46→21:16)
[2016-03-08] MEDS: ASPIRIN 81 MG CHEW PO SCH ×2 (11:46→14:54)
[2016-03-08] MEDS: METOPROLOL TARTRATE 25 MG TAB PO SCH ×3 (11:46→21:16)
[2016-03-08] MEDS: LEVOTHYROXINE 100 MCG TAB PO SCH ×2 (11:46→14:55)
[2016-03-08] MEDS: ATORVASTATIN 40 MG TAB PO SCH ×2 (11:46→14:54)
--- NOTE | 2016-03-08 13:22 | P.HPIM ---
History of Present Illness H&P Date: 03/08/16 Chief Complaint: Chest pain This is a 61-year-old female patient of Dr. Dr. Bella with past medical history for COPD, hypertension, hyperlipidemia, hypothyroidism, tobacco use and dependence. She had a recent hospitalization from February 28 through March 03 at which time she was treated for breath and chest pain daily exacerbation of COPD and acute on chronic diastolic heart failure. Her d-dimer was elevated. CT angiogram of the chest showed no evidence of pulmonary embolism. Pulmonary interstitial edema and bilateral pleural effusions consistent with heart failure. Small pericardial effusion. Patient was seen in consultation by Dr. Simental from cardiology she was treated with IV Lasix as well as IV Solu-Medrol, DuoNeb treatments and inhaled steroids. Echocardiogram revealed mild aortic regurgitation, moderate mitral regurgitation, mild tricuspid regurgitation, mild pulmonary hypertension, small generalized pericardial effusion, borderline concentric left ventricular hypertrophy, EF 40- 45%. Patient states she developed another episode of chest pain and shortness of breath yesterday but did not tell her . This apparently resolved and then she had a repeat episode this morning about 5:00 in the morning. She states the pain is in the midsternal area with radiation to the jaw. EKG shows left bundle branch block. Troponin 0.012. BUN 38 and crit and 1.05. Patient to be admitted to the selective care unit consult with cardiology for heart catheterization. Review of Systems All systems: negative Constitutional: Denies chills, Denies fever Eyes: denies blurred vision, denies pain Ears, nose, mouth and throat: Denies headache, Denies sore throat Cardiovascular: Reports chest pain, Reports shortness of breath, Denies leg edema, Denies lightheadedness, Denies syncope Respiratory: Reports dyspnea, Denies cough, Denies cough with sputum, Denies excessive sputum, Denies hemoptysis, Denies home oxygen Gastrointestinal: Denies abdominal pain, Denies diarrhea, Denies nausea, Denies vomiting Genitourinary: Denies dysuria, Denies hematuria Musculoskeletal: Denies myalgias Integumentary: Denies pruritus, Denies rash Neurological: Denies numbness, Denies weakness Psychiatric: Denies anxiety, Denies depression Endocrine: Denies fatigue, Denies weight change Past Medical History Past Medical History: Heart Failure, COPD, Hyperlipidemia, Hypertension, Thyroid Disorder Additional Past Medical History / Comment(s): Pt recently admitted 02/29/16 with dyspnea secondary to acute exacerbation of COPD/acute on chronic CHF. History of Any Multi-Drug Resistant Organisms: None Reported Past Surgical History: Cholecystectomy, Orthopedic Surgery, Tonsillectomy Additional Past Surgical History / Comment(s): THYROIDECTOMY due to benign nodules, R shoulder arthroscopy, L foot bunionectomy, lateral carpal tunnel release. Past Anesthesia/Blood Transfusion Reactions: Motion Sickness, Postoperative Nausea & Vomiting (PONV) Past Psychological History: No Psychological Hx Reported Additional Psychological History / Comment(s): Pt resides with her spouse. She is independent. Smoking Status: Former smoker Past Alcohol Use History: None Reported Additional Past Alcohol Use History / Comment(s): Patient has been a smoker one and half packs per day for 26 years and quit on 02/27/2016. She denies any medical marijuana, marijuana, street drug or alcohol use. She works at [employer] in the [employer] section. Past Drug Use History: None Reported - Past Family History Brother(s) Family Medical History: Cancer Additional Family Medical History / Comment(s): Patient has 1 brother that had a myocardial infarction in his 40s and a second brother had myocardial infarction at age 61. Sister(s) Family Medical History: Cancer Additional Family Medical History / Comment(s): Patient has one sister that 59 years of age with thyroid cancer. Mother Family Medical History: Hypertension Additional Family Medical History / Comment(s): Mother is 80yrs old. Father Family Medical History: Myocardial Infarction ([place]) Additional Family Medical History / Comment(s): Father of a massive [place] at the age of 57yrs. Daughter(s) Additional Family Medical History / Comment(s): A Rafiq has one daughter with history of diabetes and palpitations. Patient has 2 sons with no major medical problems. Medications and Allergies Home Medications Medication Instructions Recorded Confirmed Type Atorvastatin [Lipitor] 40 mg PO QAM 09/21/13 03/08/16 History Levothyroxine Sodium [Synthroid] 175 mcg PO QAM 09/21/13 03/08/16 History Lisinopril-Hctz 10-12.5 mg 1 tab PO BID 11/27/14 03/08/16 History [Zestoretic 10-12.5] Albuterol Nebulized [Ventolin 2.5 mg INHALATION RT-Q4H PRN 02/29/16 03/08/16 History Nebulized] Albuterol Sulfate [Proair Hfa] 1 - 2 puff INHALATION RT-Q4H PRN 02/29/16 History Ergocalciferol (Vitamin D2) 50,000 unit PO Q7D 03/08/16 03/08/16 History [Vitamin D2] methylPREDNISolone [Medrol Dose See Taper PO DIRECTED 03/08/16 03/08/16 History Pack] Allergies Allergy/AdvReac Type Severity Reaction Status Date / Time No Known Allergies Allergy Verified 03/08/16 07:39 Physical Exam Vitals: Vital Signs Temp Pulse Pulse Resp BP BP Pulse Ox 03/08/16 12:00 73 16 03/08/16 10:15 73 16 03/08/16 10:05 97.5 F L 73 16 119/74 98 03/08/16 09:19 80 14 98/68 97 Intake and Output 03/07/16 03/08/16 03/08/16 22:59 06:59 14:59 Other: Weight 89.3 kg Patient Weight 03/09/16 06:59 Weight 89.3 kg Gen: This is a 61-year-old female. She is sitting up in the ER on a stretcher. She appears to be in no respiratory distress. HEENT: Head is atraumatic, normocephalic. Pupils equal, round. Sclerae is anicteric. NECK: Supple. No JVD. No lymphadenopathy. No thyromegaly. LUNGS: Decreased air exchange bilaterally.. No wheezes or rhonchi. No intercostal retractions. HEART: Regular rate and rhythm. No murmur. ABDOMEN: Soft. Bowel sounds are present. No masses. No tenderness. EXTREMITIES: No pedal edema. No calf tenderness. Dorsalis pedis +2 bilaterally. NEUROLOGICAL: Patient is awake, alert and oriented x3. Cranial nerves 2 through 12 are grossly intact. Results CBC & Chem 7: 03/08/16 06:40 03/08/16 06:40 Thrombosis Risk Factor Assmnt - DVT/VTE Prophylaxis DVT/VTE Prophylaxis: Pharmacologic Prophylaxis ordered - Choose All That Apply Any of the Below Risk Factors Present?: Yes Each Factor Represents 1 point: Heart failure (<1month), Obesity (BMI >25) Other Risk Factors: Yes Each Risk Factor Represents 2 Points: Age 61-74 years Other congenital or acquired thrombophilia - If yes, enter type in comment: No Thrombosis Risk Factor Assessment Total Risk Factor Score: 4 Thrombosis Risk Factor Assessment Level: Moderate Risk Assessment and Plan Plan: 1. Recurrent episodes of chest pain with abnormal EKG and abnormal echocardiogram with hypokinetic LV wall motion and EF 40-45%. Cardiology consult for heart catheterization. Aspirin 81 mg daily, Lipitor 40 mg daily, Lopressor 25 mg twice daily, Nitrostat 0.4 mg as needed. 2. Hypertension. Continue Zestoretic one twice daily, Lopressor 25 mg twice daily, Lasix 20 mg daily. 3. Hyperlipidemia. Continue Lipitor. 4. Hypothyroidism. Continue levothyroxine 175 g daily. 5. Obesity with BMI of 37. 6. Tobacco use and dependence. Patient quit 02/27/2016. 7. Chronic systolic heart failure. Continue Lasix 20 mg daily, Lopressor 25 mg twice daily. 8. Probable COPD, stable. Continue albuterol nebulizer every 4 hours as needed. 9. DVT prophylaxis. 10. Gastrointestinal prophylaxis. Patient will be admitted to the hospital for a minimum of 2 night stay. Discharge plan: Return home Impression and plan of care have been directed as dictated by the signing physician. Freida Diez nurse practitioner acting as scribe for signing physician. Time with Patient: Greater than 30
[2016-03-08 14:00] LABS: Creatine Kinase <20 U/L (30-135)
[2016-03-08 14:13] LABS: Creatine Kinase MB 0.4 ng/mL (0.0-2.4); Troponin I <0.012 ng/mL (0.000-0.034)
[2016-03-08] MEDS: LEVOTHYROXINE 75 MCG TAB PO SCH (14:55)
[2016-03-08] MEDS ORDERED: ATORVASTATIN 80 MG TAB PO STA (16:12)
[2016-03-08] MEDS ORDERED: ALPRAZolam 0.5 MG TAB PO PRN (16:12)
[2016-03-08] MEDS ORDERED: SODIUM CHLORIDE 0.9% 1,000 ML in EMPTY BAG 1 BAG IV ONE (16:12)
[2016-03-08] MEDS ORDERED: ALPRAZolam 0.25 MG TAB PO PRN (16:12)
[2016-03-08] MEDS ORDERED: ASPIRIN 325 MG TAB PO STA (16:12)
--- NOTE | 2016-03-08 16:18 | P.CRDCN ---
History of Present Illness Consult date: 03/08/16 Chief complaint: Chest discomfort History of present illness: This is a pleasant 61-year-old female patient with a past medical history significant for cardiomyopathy with an ejection fraction between 40-45% , COPD, hypertension, and dyslipidemia, presented to the emergency room complaining of chest discomfort. The patient just was discharged from the hospital last week when she presented with progressive exertional dyspnea and was diagnosed with COPD and CHF exacerbation. At that point she underwent an echocardiogram which showed impaired LV function with an ejection fraction between 40-45% with regional wall motion abnormalities. She presented back to the hospital this time complaining of chest discomfort. She had 2 episodes of chest discomfort over the last 24 hours. She describes the discomfort in the mid of the chest, as a pressure on the chest, was radiation to the jaw and to the neck. She was feeling sweaty and felt nauseated as well with a chest discomfort. Each episode lasted about 20 minutes. The EKG showed sinus rhythm with LBBB. The cardiac enzymes came in to be unremarkable. I recommended proceeding with heart catheterization to rule out any severe underlying CAD in this 61-year-old lady with smoking, hypertension, dyslipidemia , and very significant family history of CAD. Past Medical History Past Medical History: Heart Failure, COPD, Hyperlipidemia, Hypertension, Thyroid Disorder Additional Past Medical History / Comment(s): Pt recently admitted 02/29/16 with dyspnea secondary to acute exacerbation of COPD/acute on chronic CHF. History of Any Multi-Drug Resistant Organisms: None Reported Past Surgical History: Cholecystectomy, Orthopedic Surgery, Tonsillectomy Additional Past Surgical History / Comment(s): THYROIDECTOMY due to benign nodules, R shoulder arthroscopy, L foot bunionectomy, lateral carpal tunnel release. Past Anesthesia/Blood Transfusion Reactions: Motion Sickness, Postoperative Nausea & Vomiting (PONV) Past Psychological History: No Psychological Hx Reported Additional Psychological History / Comment(s): Pt resides with her spouse. She is independent. Smoking Status: Former smoker Past Alcohol Use History: None Reported Additional Past Alcohol Use History / Comment(s): Patient has been a smoker one and half packs per day for 26 years and quit on 02/27/2016. She denies any medical marijuana, marijuana, street drug or alcohol use. She works at [employer] in the [employer] section. Past Drug Use History: None Reported - Past Family History Brother(s) Family Medical History: Cancer Additional Family Medical History / Comment(s): Patient has 1 brother that had a myocardial infarction in his 40s and a second brother had myocardial infarction at age 61. Sister(s) Family Medical History: Cancer Additional Family Medical History / Comment(s): Patient has one sister that 59 years of age with thyroid cancer. Mother Family Medical History: Hypertension Additional Family Medical History / Comment(s): Mother is 80yrs old. Father Family Medical History: Myocardial Infarction ([place]) Additional Family Medical History / Comment(s): Father of a massive [place] at the age of 57yrs. Daughter(s) Additional Family Medical History / Comment(s): A Chin has one daughter with history of diabetes and palpitations. Patient has 2 sons with no major medical problems. Medications and Allergies Home Medications Medication Instructions Recorded Confirmed Type Atorvastatin [Lipitor] 40 mg PO QAM 09/21/13 03/08/16 History Levothyroxine Sodium [Synthroid] 175 mcg PO QAM 09/21/13 03/08/16 History Lisinopril-Hctz 10-12.5 mg 1 tab PO BID 11/27/14 03/08/16 History [Zestoretic 10-12.5] Albuterol Nebulized [Ventolin 2.5 mg INHALATION RT-Q4H PRN 02/29/16 03/08/16 History Nebulized] Albuterol Sulfate [Proair Hfa] 1 - 2 puff INHALATION RT-Q4H PRN 02/29/16 History Ergocalciferol (Vitamin D2) 50,000 unit PO Q7D 03/08/16 03/08/16 History [Vitamin D2] methylPREDNISolone [Medrol Dose See Taper PO DIRECTED 03/08/16 03/08/16 History Pack] Allergies Allergy/AdvReac Type Severity Reaction Status Date / Time No Known Allergies Allergy Verified 03/08/16 07:39 Physical Exam Vitals: Vital Signs Temp Pulse Pulse Resp BP BP Pulse Ox 03/08/16 15:35 97.8 F 87 16 98/67 95 03/08/16 12:00 73 16 03/08/16 10:15 73 16 03/08/16 10:05 97.5 F L 73 16 119/74 98 03/08/16 09:19 80 14 98/68 97 Intake and Output 03/08/16 03/08/16 03/08/16 06:59 14:59 22:59 Other: Weight 89.3 kg Patient Weight 03/09/16 06:59 Weight 89.3 kg - Constitutional General appearance: no acute distress - Respiratory Respiratory: bilateral: CTA - Cardiovascular Rhythm: regular Heart sounds: normal: S1, S2 Results 03/08/16 06:40 03/08/16 06:40 Cardiac Enzymes 03/08/16 Range/Units 13:02 CK-MB (CK-2) 0.4 (0.0-2.4) ng/mL Troponin I <0.012 (0.000-0.034) ng/mL Current Medications Generic Name Dose Route Start Last Admin Trade Name Freq PRN Reason Stop Dose Admin Albuterol Sulfate 2.5 mg 03/08/16 08:56 Ventolin Nebulized INHALATION RT-Q4H PRN Shortness Of Breath Aspirin 81 mg 03/08/16 09:00 03/08/16 14:54 Aspirin PO 81 mg DAILY WILLAM Administration Atorvastatin Calcium 40 mg 03/08/16 09:00 03/08/16 14:54 Lipitor PO 40 mg QAM WILLAM Administration Famotidine 20 mg 03/09/16 09:00 Pepcid PO DAILY WILLAM Furosemide 20 mg 03/08/16 09:00 03/08/16 14:54 Lasix PO 20 mg DAILY WILLAM Administration Lisinopril/HCTZ 1 each 03/08/16 09:00 03/08/16 14:54 Zestoretic 10-12.5 PO 1 each BID WILLAM Administration Levothyroxine Sodium 100 mcg 03/08/16 09:30 03/08/16 14:55 Synthroid PO 100 mcg DAILY@0630 WILLAM Administration Levothyroxine Sodium 75 mcg 03/08/16 09:30 03/08/16 14:55 Synthroid PO 75 mcg DAILY@0630 WILLAM Administration Metoprolol Tartrate 25 mg 03/08/16 09:30 03/08/16 14:54 Lopressor PO 25 mg BID WILLAM Administration Nitroglycerin 0.4 mg 03/08/16 08:47 Nitrostat SUBLINGUAL Q5M PRN Chest Pain Intake and Output 03/08/16 03/08/16 03/08/16 06:59 14:59 22:59 Other: Weight 89.3 kg Patient Weight 03/09/16 06:59 Weight 89.3 kg Assessment and Plan Plan: Assessment #1 recurrent chest discomfort seems to be angina #2 cardiomyopathy with regional wall motion abnormalities #3 significant history of smoking #4 significant family history of CAD Plan #1 I recommended proceeding with heart catheterization #2 we'll continue following up with her
[2016-03-08 20:37] LABS: Creatine Kinase <20 U/L (30-135)
[2016-03-08 20:48] LABS: Creatine Kinase MB 0.4 ng/mL (0.0-2.4); Troponin I <0.012 ng/mL (0.000-0.034)
[2016-03-09] MEDS: LEVOTHYROXINE 100 MCG TAB PO SCH (06:47)
[2016-03-09] MEDS: LEVOTHYROXINE 75 MCG TAB PO SCH (06:47)
[2016-03-09 08:35] LABS: Anion Gap 9 mmol/L; Blood Urea Nitrogen 30 mg/dL (7-17); Calcium 8.6 mg/dL (8.4-10.2); Carbon Dioxide 29 mmol/L (22-30); Chloride 100 mmol/L (98-107); Cholesterol 212 mg/dL (<200); Glucose 78 mg/dL (74-99); HDL Cholesterol 60 mg/dL (40-60); Non-African American GFR(MDRD) >60 (>60 ml/min/1.73 sqM); Potassium 4.7 mmol/L (3.5-5.1); Sodium 138 mmol/L (137-145); Triglycerides 389 mg/dL (<150)
[2016-03-09 08:36] LABS: CH 28.8; CHCM 32.9; HCT 43.6 % (34.0-46.0); HDW 2.46; HGB 14.1 gm/dL (11.4-16.0); MCH 28.6 pg (25.0-35.0); MCHC 32.4 g/dL (31.0-37.0); MCV 88.1 fL (80.0-100.0); Mean Platelet Volume 6.2; RBC 4.95 m/uL (3.80-5.40); RDW 13.6 % (11.5-15.5); WBC 12.9 k/uL (3.8-10.6)
[2016-03-09] MEDS ORDERED: FAMOTIDINE 20 MG TAB PO SCH (09:00)
[2016-03-09] MEDS ORDERED: ASPIRIN 325 MG TAB PO SCH (09:00)
--- NOTE | 2016-03-09 10:59 | P.PN ---
Subjective Principal diagnosis: Recurrent chest pain This is a pleasant 61-year-old female patient with a past medical history significant for cardiomyopathy with an ejection fraction between 40-45% , COPD, hypertension, and dyslipidemia, presented to the emergency room complaining of chest discomfort. The patient just was discharged from the hospital last week when she presented with progressive exertional dyspnea and was diagnosed with COPD and CHF exacerbation. At that point she underwent an echocardiogram which showed impaired LV function with an ejection fraction between 40-45% with regional wall motion abnormalities. She presented back to the hospital this time complaining of chest discomfort. She had 2 episodes of chest discomfort over the last 24 hours. She describes the discomfort in the mid of the chest, as a pressure on the chest, was radiation to the jaw and to the neck. She was feeling sweaty and felt nauseated as well with a chest discomfort. Each episode lasted about 20 minutes. The EKG showed sinus rhythm with LBBB. The cardiac enzymes came in to be unremarkable. I'll follow up with the patient today, she did not have any chest pain since she was admitted to the hospital. She is scheduled to undergo a heart catheterization by Dr. Simental at [facility] today. Objective - Vital Signs Vital signs: Vital Signs Temp 97.6 F 03/09/16 07:47 Pulse 73 03/09/16 07:47 Resp 16 03/09/16 07:47 BP 115/65 03/09/16 07:47 Pulse Ox 97 03/09/16 08:45 Intake & Output 03/08/16 03/09/16 03/09/16 18:59 06:59 18:59 Intake Total 200 Balance 200 Weight 89.3 kg Intake: Oral 200 Other: # Voids 3 1 - Constitutional General appearance: Present: no acute distress - Respiratory Respiratory: bilateral: CTA - Cardiovascular Rhythm: regular - Labs CBC & Chem 7: 03/09/16 07:34 03/09/16 07:32 Labs: Abnormal Lab Results - Last 24 Hours (Table) 03/08/16 03/08/16 03/09/16 Range/Units 13:02 19:26 07:32 WBC (3.8-10.6) k/uL BUN 30 H (7-17) mg/dL Total Creatine Kinase <20 L <20 L (30-135) U/L Triglycerides 389 H (<150) mg/dL Cholesterol 212 H (<200) mg/dL 03/09/16 Range/Units 07:34 WBC 12.9 H (3.8-10.6) k/uL BUN (7-17) mg/dL Total Creatine Kinase (30-135) U/L Triglycerides (<150) mg/dL Cholesterol (<200) mg/dL Assessment and Plan Plan: Assessment #1 chest discomfort consistent with angina #2 ischemic cardiomyopathy #3 significant history of smoking Plan #1 the patient is scheduled to undergo a heart cath by Dr. Simental today.
[2016-03-09 11:26] VITALS: TEMP 98.2
[2016-03-09] MEDS: LISINOPRIL-HCTZ 10-12.5 MG 1 EACH TAB PO SCH (12:13)
[2016-03-09] MEDS: METOPROLOL TARTRATE 25 MG TAB PO SCH (12:13)
[2016-03-09] MEDS: ATORVASTATIN 40 MG TAB PO SCH (12:13)
[2016-03-09] MEDS: ASPIRIN 81 MG CHEW PO SCH (12:13)
[2016-03-09] MEDS ORDERED: fentaNYL (PF) 50 MCG/ML 2 ML AMP IV ONE (12:24)
[2016-03-09] MEDS ORDERED: LIDOCAINE 2% INJ 20 MG/ML SQ ONE (12:25)
[2016-03-09] MEDS ORDERED: VERAPAMIL SYRINGE (5 MG/10 ML) INTRAARTER ONE (12:27)
[2016-03-09] MEDS ORDERED: diphenhydrAMINE 50 MG/ML 1 ML VIAL ONE (12:53)
[2016-03-09] MEDS ORDERED: fentaNYL (PF) 50 MCG/ML 2 ML AMP ONE (12:53)
[2016-03-09] MEDS ORDERED: VERAPAMIL 2.5 MG/ML 2 ML AMP ONE (12:53)
[2016-03-09] MEDS ORDERED: HEPARIN SODIUM 1,000 UNIT/ML VIAL ONE (12:53)
[2016-03-09] MEDS ORDERED: LIDOCAINE 2% INJ 20 MG/ML (20 ML MDV) ONE (12:53)
[2016-03-09] MEDS ORDERED: SODIUM CHLORIDE 0.9% (PF) 10 ML VIAL ONE (12:53)
[2016-03-09] MEDS ORDERED: diphenhydrAMINE 50 MG/ML 1 ML VIAL IVP ONE (13:23)
[2016-03-09] MEDS ORDERED: SODIUM CHLORIDE 0.9% 1,000 ML IV ONE (13:30)
[2016-03-09] MEDS ORDERED: IOHEXOL 350 MG/ML 100 ML BOTTLE INJ ONE (13:36)
[2016-03-09] MEDS ORDERED: RX INFO: IV CONTRAST WAS GIVEN 1 EACH MISC MISCELLANE PRN (13:45)
[2016-03-09] MEDS ORDERED: SODIUM CHLORIDE 0.9% 1,000 ML IV SCH (13:45)
[2016-03-09 14:01] VITALS: RESP 16
[2016-03-09] MEDS: FUROSEMIDE 20 MG TAB PO SCH (14:17)
[2016-03-09 16:01] VITALS: BP 107/63; PULSE 64
--- NOTE | 2016-03-09 16:04 | P.DS ---
Providers Date of admission: 03/08/16 08:47 Expected date of discharge: 03/09/16 Attending physician: Lou Bella Primary care physician: Lou Bella Hospital Course: This is a 61-year-old female patient of Dr. Dr. Bella with past medical history for COPD, hypertension, hyperlipidemia, hypothyroidism, tobacco use and dependence. She had a recent hospitalization from February 28 through March 03 at which time she was treated for breath and chest pain daily exacerbation of COPD and acute on chronic diastolic heart failure. Her d-dimer was elevated. CT angiogram of the chest showed no evidence of pulmonary embolism. Pulmonary interstitial edema and bilateral pleural effusions consistent with heart failure. Small pericardial effusion. Patient was seen in consultation by Dr. Simental from cardiology she was treated with IV Lasix as well as IV Solu-Medrol, DuoNeb treatments and inhaled steroids. Echocardiogram revealed mild aortic regurgitation, moderate mitral regurgitation, mild tricuspid regurgitation, mild pulmonary hypertension, small generalized pericardial effusion, borderline concentric left ventricular hypertrophy, EF 40- 45%. Patient states she developed another episode of chest pain and shortness of breath yesterday but did not tell her . This apparently resolved and then she had a repeat episode this morning about 5:00 in the morning. She states the pain is in the midsternal area with radiation to the jaw. EKG shows left bundle branch block. Troponin 0.012. BUN 38 and crit and 1.05. Patient to be admitted to the selective care unit consult with cardiology for heart catheterization. 03/09: Patient underwent heart catheterization today with Dr. Simental which was negative for coronary artery disease. Patient has been cleared by cardiology for discharge home. Patient will be discharged home today in stable condition. Discharge diagnoses: 1. Recurrent episodes of chest pain with abnormal EKG and abnormal echocardiogram with hypokinetic LV wall motion and EF 40-45%. 2. Hypertension. 3. Hyperlipidemia. 4. Hypothyroidism. 5. Obesity with BMI of 37. 6. Tobacco use and dependence. 7. Chronic systolic heart failure. 8. Probable COPD, stable. Discharge plan: Return home Impression and plan of care have been directed as dictated by the signing physician. Freida Diez nurse practitioner acting as scribe for signing physician. Patient Condition at Discharge: Good Plan - Discharge Summary Discharge Medication List Atorvastatin [Lipitor] 40 mg PO QAM 09/21/13 [History] Levothyroxine Sodium [Synthroid] 175 mcg PO QAM 09/21/13 [History] Lisinopril-Hctz 10-12.5 mg [Zestoretic 10-12.5] 1 tab PO BID 11/27/14 [History] Albuterol Nebulized [Ventolin Nebulized] 2.5 mg INHALATION RT-Q4H PRN 02/29/16 [ History] Albuterol Sulfate [Proair Hfa] 1 - 2 puff INHALATION RT-Q4H PRN 02/29/16 [ History] Aspirin 81 mg PO DAILY chew 03/03/16 [Rx] Furosemide [Lasix] 20 mg PO DAILY #30 tab 03/03/16 [Rx] methylPREDNISolone Dose Pack [Medrol Dose Pack] 4 mg PO DIRECTED #21 package 03/03/16 [Rx] Ergocalciferol (Vitamin D2) [Vitamin D2] 50,000 unit PO Q7D 03/08/16 [History] methylPREDNISolone [Medrol Dose Pack] See Taper PO DIRECTED 03/08/16 [History ] Follow up Appointment(s)/Referral(s): Danay Simental MD [STAFF PHYSICIAN] - 2 Weeks Lou Bella MD [Primary Care Provider] - 1 Week Discharge Disposition: HOME SELF-CARE
--- NOTE | 2016-03-09 19:33 | CC ---
DATE OF SERVICE: Mrs. Ceja is a 61-year-old female with known history of chronic tobacco use, hypertension, hyperlipidemia, who was recently admitted to the hospital with symptoms of progressive dyspnea. She was found to have evidence of moderate cardiomyopathy. She presented again with an episode of chest discomfort. She was evaluated by Dr. Vargas and recommendation was made regarding cardiac catheterization. The procedure as well as risks and complications were discussed with the patient, who was in full understanding and agreement. PROCEDURE: Patient was brought to the animal laboratory helper in a fasting, semi-sedated state after receiving fentanyl and Benadryl. She was draped and prepped in conventional fashion. Using Xylocaine anesthesia and Seldinger technique, a 6 [place] sheath was introduced in the right radial artery. Selective right and left coronary angiography was performed using a 5 [place] 3-1/2 Bend, right and left Marisel catheters. Multiple views of the arteries, including hemiaxial views, were obtained. Following that, a 5 [place] tight pigtail catheter was introduced into the left ventricle and a 30-degree SOW view of the left ventricle was obtained. Following that, catheter and sheaths were removed. Hemostasis was obtained with deployment of a TR band. There were no immediate complication. Patient was returned to her room in stable condition. Of note, patient received 4500 units of intravenous heparin as well as intra-arterial Verapamil. FINDINGS LEFT MAIN: This is a large-sized vessel bifurcating into left circumflex and left anterior descending artery. Left main coronary artery is without any evidence of high-grade stenosis. LEFT ANTERIOR DESCENDING ARTERY: This is a large-sized vessel reaching toward the apex giving rise to 2 moderate-sized diagonal branches. Left anterior descending artery as well as its branches has no evidence of obstructive coronary artery disease. LEFT CIRCUMFLEX: This is a non-dominant vessel giving rise to 2 obtuse marginal branches. The first one is large in caliber. The left circumflex as well as its branches has no evidence of high-grade stenosis. RIGHT CORONARY ARTERY: This is a large dominant vessel bifurcating into PDA and posterolateral segment and branches. The right coronary artery and its branches have no evidence of high-grade stenosis. LEFT VENTRICULOGRAM: Left ventriculogram was performed in 30-degree SOW view and revealed moderate global hypokinesis with an ejection fraction of 40%. There was arrhythmia-induced mitral regurgitation. HEMODYNAMICS: There was no gradient across the aortic valve. The left ventricular end-diastolic pressure was 8 to 12 mmHg. CONCLUSION: 1. Normal coronary arteries. 2. Moderately impaired left ventricular systolic function. RECOMMENDATION: In view of the findings, I have recommended continued medical therapy with the aggressive risk factor modifications that have been initiated. I discussed with the patient as well as her family that the findings are consistent with nonischemic cardiomyopathy. Will maximize her medical therapy and, depending on her progress, further recommendations will be made.
--- NOTE | 2016-03-09 19:35 | LTR ---
March 09, 2016 RE: MarcialJen Dear Dr. Bella, I had the pleasure of performing cardiac catheterization on Mrs. Ceja at [facility] on March 09, and a full copy of the procedure note will be forwarded to you. In brief, she was found to have no evidence of significant coronary artery disease, with a mildly impaired left ventricular systolic function that was documented on her echocardiogram. Based on those findings, I have recommended continued aggressive treatment with a combination of Osmar inhibitor and beta micha as well as smoking cessation. Depending on her progress, further recommendations will be made. Thank you again for allowing me to participate in her care. Please feel free to call with any questions. Sincerely, BENIGNO MEDRANO MD
== END 2016-03-09 18:43 | disposition home or self-care (01) ==
LOC: EC 06:08 → 3OBS 08:47
PROVIDERS: ADMIT Internal Medicine; ATTEND Internal Medicine
DX: R07.89 Other chest pain (principal); I11.0 Hypertensive heart disease with heart failure; I50.22 Chronic systolic (congestive) heart failure; E78.5 Hyperlipidemia, unspecified; E03.9 Hypothyroidism, unspecified; E66.9 Obesity, unspecified; Z68.37 Body mass index [BMI] 37.0-37.9, adult; F17.200 Nicotine dependence, unspecified, uncomplicated; I08.3 Combined rheumatic disorders of mitral, aortic and tricuspid valves; I27.2 Other secondary pulmonary hypertension; I25.5 Ischemic cardiomyopathy; I31.3 Pericardial effusion (noninflammatory); I44.7 Left bundle-branch block, unspecified; J44.9 Chronic obstructive pulmonary disease, unspecified; Z79.82 Long term (current) use of aspirin; Z79.899 Other long term (current) drug therapy; Z82.49 Family history of ischemic heart disease and other diseases of the circulatory system; Z80.8 Family history of malignant neoplasm of other organs or systems
CPT/HCPCS: 99285; 96372; 36415; 94760; 93005; 83880; 80061; 80053; 80048; 82550; 82553; 83735; 84484; 85025; 85027; 85610; 85730; 71020; G0378 ×2; J2001; J1200; Q9967; J1650; J3010; J1644; 93458

== ENCOUNTER 2017-02-25 09:38 | Day surgery (SDC) | payer BC ==
[2017-02-23 12:43] VITALS: BMI 38.1
--- NOTE | 2017-02-24 21:58 | HP ---
HISTORY AND PHYSICAL CHIEF COMPLAINT: Right ring finger triggering and pain. 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 She had a previous injection that gave her initial temporary relief in August of 2016. She notes locking, catching, and pain. PAST MEDICAL HISTORY: Significant for hypertension and hypothyroidism. PAST SURGICAL HISTORY: Significant for previous wrist surgery, partial thyroidectomy, foot surgery and cholecystectomy. CURRENT MEDICATIONS: Crestor, Synthroid, Lasix, metoprolol, and potassium. ALLERGIES: He denies drug allergies. FAMILY HISTORY: Significant for heart disease. SOCIAL HISTORY: Significant for 1 pack per day tobacco use. PHYSICAL EXAMINATION: On examination, the patient is approximately 5 feet 1 inch, 200 pounds of endomorphic habitus. HEENT exam is nonfocal. Neck is supple. She is nontender about the right shoulder, elbow and wrist. On examination of her right hand, she is tender over the A1 gene of the ring finger. She has palpable triggering. Light touch is distally intact. 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 IMPRESSION: Right ring trigger finger-recurrent. RECOMMENDATIONS: I talked to the patient at length regarding her treatment options. At this point, she opts to proceed with surgery. We will plan to proceed with right ring trigger finger release. Likely to perform that as an outpatient procedure utilizing local anesthetic and IV sedation. Risks and benefits were discussed at length in layman's terms. MMODL / IJN: [id number] /
[~2017-02-25 09:38] MED LIST: HYDROmorphone 0.5 MG/0.5 ML SYRINGE IVP PRN; LACTATED RINGERS 1,000 ML IV SCH; ONDANSETRON 4 MG/2 ML VIAL IVP PRN; ceFAZolin IN SWFI 2 GM/20 ML SYRINGE IVP ONE
[2017-02-25 09:54] VITALS: RESP 16; TEMP 97.7
[2017-02-25] MEDS ORDERED: LIDOCAINE 1% 20 ML VIAL (10MG/ML) FOR IV START INTRADERMA ONE (09:54)
[2017-02-25] MEDS ORDERED: fentaNYL (PF) 50 MCG/ML 2 ML AMP ONE (10:41)
[2017-02-25] MEDS ORDERED: LIDOCAINE 1% INJ 10MG/ML (20 ML MDV) ONE (10:41)
[2017-02-25] MEDS ORDERED: MIDAZOLAM 2 MG/2 ML VIAL ONE (10:41)
[2017-02-25] MEDS ORDERED: PROPOFOL 10 MG/ML 20 ML VIAL IV ONE (10:41)
[2017-02-25] MEDS ORDERED: LACTATED RINGERS 1,000 ML IV ONE (10:41)
[2017-02-25] MEDS ORDERED: BUPIVACAINE (PF) 0.25% 30 ML VIAL SQ ONE ×2 (10:54)
--- NOTE | 2017-02-25 11:15 | P.OP ---
Date of Procedure: 02/25/17 Preoperative Diagnosis: Symptomatic right ring trigger finger Postoperative Diagnosis: Same Procedure(s) Performed: Right ring trigger finger release Anesthesia: MAC, local Surgeon: Hermelindo Tomlinson Estimated Blood Loss (ml): 1 Pathology: none sent Condition: stable Disposition: PACU Indications for Procedure: The patient's a 62-year-old female who presents with progressive right ring finger pain and triggering for the past several months. She tried conservative measures with persistence of her symptoms. A discussion of the risks and benefits of operative intervention versus continued conservative measures was made with the patient. She opted to proceed with surgery. Operative risks to include infection, neurovascular injury and possible recurrence of symptoms and need for subtotal procedures was discussed. Informed consent was obtained. Operative Findings: As below Description of Procedure: The patient was brought to the operating room, and after induction of IV sedation the right upper extremity was prepped and draped in a normal fashion. The proposed incision site was outlined skin marker along the distal palmar crease over the ring finger. 5 mL of quarter percent plain Marcaine was injected. The tourniquet was inflated to 2 50 mmHg. The skin incision was then made. The skin was incised sharply. Subcutaneous tissues were divided bluntly. The neurovascular bundles were gently retracted. The A1 gene of the ring finger flexor sheath was identified and transected under direct visualization proximal and distal. The tendon was mobilized. There was significant thickening. The wound was irrigated normal saline. The skin was reapproximated with simple 3-0 nylon suture. A sterile dressing was applied. The tourniquet was deflated with less than 15 minutes total tourniquet time. The patient was awoken from sedation and transferred to recovery room in good condition. Blood loss was estimated at 1 mL. No complications were incurred.
[2017-02-25 11:42] VITALS: BP 108/50; PULSE 60
== END 2017-02-25 11:55 | disposition home or self-care (01) ==
LOC: OR 09:38
PROVIDERS: ATTEND Orthopaedic Surgery
DX: M65.341 Trigger finger, right ring finger (principal); I10 Essential (primary) hypertension; E03.9 Hypothyroidism, unspecified; I38 Endocarditis, valve unspecified; F17.200 Nicotine dependence, unspecified, uncomplicated; Z79.82 Long term (current) use of aspirin; Z79.899 Other long term (current) drug therapy
CPT/HCPCS: 26055; J2250; J2405; J2001; J3010; J2704

== ENCOUNTER → 2017-05-02 | Outpatient (CLI) | payer BC ==
--- NOTE | 2017-05-02 12:49 | BD ---
EXAMINATION TYPE: MG DEXA axial skeleton. DATE OF EXAM: 05/02/2017 CLINICAL HISTORY: Comparison: Prior DEXA bone scan October 21, 2014 Height: 62 inches Weight: 200 FRAX RISK QUESTIONS: Alcohol (3 or more units per day): no Family History (Parent hip fracture): no Glucocorticoids (More than 3mos): no (Ex: prednisone, prednisolone, methylprednisolone, dexamethasone, and hydrocortisone). History of Fracture in Adulthood: no Secondary Osteoporosis: 1. Type 1 Diabetes: no 2. Hyperthyroidism: no 3. Menopause before 45: no 4. Malnutrition: no 5. Chronic liver disease: no Rheumatoid Arthritis: no Current Tobacco Use: yes RISK FACTORS HISTORY OF: Family History of Osteoporosis: no Active: yes Diet low in dairy products/other sources of calcium: no Postmenopausal woman: yes Take estrogen and/or progesterone medications: no Lost more than 2 inches in height since high school: no Frequent falls: no Poor Health: no Hyperparathyroidism: no Adrenal Insufficiency: no MEDICATIONS: Prednisone or other steroids: no Thyroid Medications: yes Which medication: generic synthroid How Long: at least 30 years Osteoporosis Medications: no Additional Medications: blood pressure med, cholesterol med Additional History: thyroid removed EXAM MEASUREMENTS: Bone mineral densitometry was performed using the [employer] System. Bone mineral density as measured about the Lumbar spine is: ----- L1-L4(G/cm2): 1.304 T Score Values are as follows: ----- L2: 0.2 ----- L3: 2.2 ----- L4: 1.6 ----- L1-L4: 1.0 Bone mineral density has: Increased 5.2% since study of: 10/21/2014 Bone mineral density about the R hip (g/cm2): 1.068 Bone mineral density about the L hip (g/cm2): 1.114 T Score values are as follows: -----R Neck: 0.2 -----L Neck: 0.5 -----R Total: 1.6 -----L Total: 2.2 Bone mineral density has: Decreased -2.0% since study of: 10/21/2014 IMPRESSION: Normal (Values between +1 and -1 indicate normal bone mass). Consider repeating this study in 5 year s or sooner if there is some new clinical indication. NOTE: T-SCORE=SD OF THE YOUNG ADULT MEAN.
--- NOTE | 2017-05-03 10:48 | MM ---
Reason for exam: screening (asymptomatic). Last mammogram was performed 1 year and 5 months ago. History: Patient is postmenopausal. Physical Findings: A clinical breast exam by your physician is recommended on an annual basis and results should be correlated with mammographic findings. MG Screening Mammo w CAD Bilateral CC and MLO view(s) were taken. Prior study comparison: December 09, 2015, bilateral MG screening mammo w CAD. October 21, 2014, bilateral MG screening mammo w CAD. There are scattered fibroglandular densities. No significant changes when compared with prior studies. ASSESSMENT: Negative, BI-RAD 1 RECOMMENDATION: Routine screening mammogram of both breasts in 1 year.
== END | disposition home or self-care (01) ==
LOC: RADMAMWWP 11:41
PROVIDERS: ATTEND Obstetrics & Gynecology
DX: Z12.31 Encounter for screening mammogram for malignant neoplasm of breast (principal); N95.1 Menopausal and female climacteric states
CPT/HCPCS: 77067; 77080

== ENCOUNTER → 2019-08-15 | Outpatient (CLI) | payer BC ==
[2019-08-15 10:30] LABS: Basophils # (A) 0.1 k/uL (0-0.2); Basophils % (A) 1 %; Eosinophils # (A) 0.3 k/uL (0-0.7); Eosinophils % (A) 3 %; HGB 14.6 gm/dL (11.4-16.0); Lymphocytes # (A) 2.6 k/uL (1.0-4.8); Lymphocytes % (A) 29 %; MCHC 33.9 g/dL (31.0-37.0); MCV 88.3 fL (80.0-100.0); Mean Platelet Volume 6.8; Monocytes # (A) 0.5 k/uL (0-1.0); Monocytes % (A) 6 %; Neutrophils # (A) 5.5 k/uL (1.3-7.7); Neutrophils % (A) 60 %; Platelet Count 343 k/uL (150-450); RBC 4.87 m/uL (3.80-5.40); RDW 13.3 % (11.5-15.5); WBC 9.1 k/uL (3.8-10.6)
[2019-08-15 18:35] LABS: African American GFR (CKD) 78.3 (60.0-200.0); Albumin 4.9 g/dL (3.80-4.90); Albumin/Globulin Ratio 2.33 (1.60-3.17); Anion Gap 10.5 mmol/L (4.00-12.00); BUN/Creat Ratio 23.33 Ratio (12.00-20.00); Calcium 9.5 mg/dL (8.7-10.3); Carbon Dioxide 27.5 mmol/L (21.6-31.8); Chol/HDL Ratio 4.75; Globulin 2.1 g/dL (1.6-3.3); LDL Cholesterol,Calculated 100.2 mg/dL (0.0-131.0); Non-African American GFR(CKD) 67.6 (60.0-200.0); Potassium 4.1 mmol/L (3.5-5.5); Total Bilirubin 0.4 mg/dL (0.3-1.2); VLDL Calculation 79.8 mg/dL (5.00-40.00)
[2019-08-15 18:43] LABS: T4, Free (Free Thyroxine) 1.3 ng/dL (0.80-1.80)
== END | disposition home or self-care (01) ==
LOC: LABWHC1 09:19
PROVIDERS: ATTEND Internal Medicine
DX: I10 Essential (primary) hypertension (principal); E78.2 Mixed hyperlipidemia; E03.9 Hypothyroidism, unspecified
CPT/HCPCS: 36415; 80053; 80061; 83735; 84439; 84443; 85025

== ENCOUNTER → 2021-01-06 | Outpatient (CLI) | payer BC ==
--- NOTE | 2021-01-06 09:18 | CTL ---
EXAMINATION TYPE: CT Low Dose Lung DATE OF EXAM ORDERED: 01/06/2021 HISTORY: 65-year-old female Z87.891. Tobacco use, nicotine dependance. Lung cancer screening CT DLP: 2.[address] CTDI: 73.7 mGy Automated exposure control for dose reduction was used. SCREENING VISIT: Baseline screening COMPARISON: CTA chest 02/29/2016 TECHNIQUE: Low dose computed tomography scan was performed through the chest with coronal and sagitta l reconstructions. CT DIAGNOSTIC QUALITY: Satisfactory FINDINGS: Heart normal size without pericardial effusion. Mild LAD coronary artery calcifications are present. 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 Conventional arch vessel branching anatomy. No thoracic lymphadenopathy by CT size criteria allowing for noncontrast low-dose CT technique. Mild diffuse bronchial wall thickening. Mild centrilobular emphysema. 2 mm subpleural pulmonary nodule peripheral right upper lobe, axial image 33. 3 mm calcified granuloma anterior right upper lobe, axial image 95. No consolidation or pleural effusion. Tiny hiatal hernia. Otherwise, visualized upper abdomen shows no gross abnormality. Bones: Some developing dish within the mid to lower thoracic spine with anterior endplate spondylosis . IMPRESSION: 1. LungRADS 2, benign. A couple tiny 3 mm and smaller pulmonary nodules on baseline screening. 2. COPD with mild emphysema. Recommend smoking cessation. CT LUNG RAD AND CT CHEST RECOMMENDATION: Lung-Rad 2 Benign Appearance or Behavior: Continue annual sc reening with LDCT in 12 months.
== END | disposition home or self-care (01) ==
LOC: RADCTMAIN 07:46
PROVIDERS: ATTEND Internal Medicine
DX: Z12.2 Encounter for screening for malignant neoplasm of respiratory organs (principal); J43.9 Emphysema, unspecified; Z87.891 Personal history of nicotine dependence
CPT/HCPCS: 71271

== ENCOUNTER → 2022-11-18 | Outpatient (CLI) | payer BC, MEDICARE ==
--- NOTE | 2022-11-18 10:51 | BD ---
EXAMINATION TYPE: Axial Bone Density DATE OF EXAM: 11/18/2022 CLINICAL HISTORY: 67 years old Female. ICD-10 CODE: M810 AGE RELATED OSTEO Height: 61.5 in Weight: 193 lbs FRAX RISK QUESTIONS: Secondary Osteoporosis: Current Tobacco Use: yes RISK FACTORS HISTORY OF: Active: yes Diet low in dairy products/other sources of calcium: yes Postmenopausal woman: age 52 MEDICATIONS: Thyroid Medications: yes Which medication: Synthroid How Lon+ years Additional Medications: vit d, blood pressure meds, cholesterol meds, water pill, baby aspirin, heart meds, EXAM MEASUREMENTS: Bone mineral densitometry was performed using the [employer] System. Bone mineral density as measured about the Lumbar spine is: ----- L1-L4(G/cm2): 1.273 T Score Values are as follows: ----- L1: -0.2 ----- L2: 0.0 ----- L3: 1.5 ----- L4: 1.5 ----- L1-L4: 0.8 Z Score Values are as follows: ----- L1: 0.6 ----- L2: 0.8 ----- L3: 2.4 ----- L4: 2.4 ----- L1-L4: 1.7 Bone mineral density has: Decreased -2.4% since study of: 05/12/2017 Bone mineral density about the R hip (g/cm2): 1.153 Bone mineral density about the L hip (g/cm2): 1.247 T Score values are as follows: -----R Neck: 0.0 -----L Neck: 0.0 -----R Total: 1.2 -----L Total: 1.9 Z Score values are as follows: -----R Neck: 1.1 -----L Neck: 1.1 -----R Total: 2.0 -----L Total: 2.7 Bone mineral density has: Decreased -3.8% since study of: 05/12/2017 FRAX%s: The graph provided illustrates a 6.2% chance for a major osteoporotic fx and a 0.4% chance fo r the hips probability for fx in 10 years time. IMPRESSION: Normal (Values between +1 and -1 indicate normal bone mass). Consider repeating this study in 5 year s or sooner if there is some new clinical indication. NOTE: T-SCORE=SD OF THE YOUNG ADULT MEAN.
--- NOTE | 2022-11-18 10:57 | US ---
EXAMINATION TYPE: US carotid duplex BILAT DATE OF EXAM: 11/18/2022 COMPARISON: NONE CLINICAL INDICATION: Female, 67 years old with history of [id number] CAROTID STENOSIS; stnoosis TECHNIQUE: Carotid duplex ultrasound examination. Indirect Doppler criteria was utilized. FINDINGS: EXAM MEASUREMENTS: RIGHT: Peak Systolic Velocity (PSV) cm/sec ----- Right CCA: 67.7 ----- Right ICA: 89.5 ----- Right ECA: 67.7 ICA/CCA ratio: 1.3 RIGHT: End Diastole cm/sec ----- Right CCA: 25.6 ----- Right ICA: 40.1 ----- Right ECA: 15.4 LEFT: Peak Systolic Velocity (PSV) cm/sec ----- Left CCA: 67.7 ----- Left ICA: 82.3 ----- Left ECA: 69.2 ICA/CCA ratio: 1.2 LEFT: End Diastole cm/sec ----- Left CCA: 25.6 ----- Left ICA: 38.7 ----- Left ECA: 12.5 VERTEBRALS (direction of flow): Right Vertebral: Antegrade Left Vertebral: Antegrade Rhythm: Normal APPLICATIONS SCIENTIST NOTES: No significant stenosis seen There is some mild atherosclerotic plaque seen within the left carotid bulb. Mild atherosclerotic breonna que is also seen within the proximal portion of the internal carotid artery. Mild plaque is also seen within the left external carotid artery. Mild atherosclerotic plaque is seen within the right caroti d bulb and region of the external carotic artery as well. IMPRESSION: Mild atherosclerotic plaque with no evidence of hemodynamically significant stenosis as above. Criteria for Assigning % of Stenosis / Diameter reduction (Estimation based on the indirect measurements of the internal carotid artery velocities (ICA PSV). 1. Normal (no stenosis)=ICA PSV < 125 cm/s: ratio < 2.0: ICA EDV<40 cm/s. 2. Less than 50% stenosis=ICA PSV < 125 cm/s: ratio < 2.0: ICA EDV<40 cm/s. 3. 50 to 69% stenosis=ICA PSV of 125 to 230 cm/s: ration 2.0 ? 4.0: ICA EDV 40-100 cm/s. 4. Greater than 70% stenosis to near occlusion= ICA PSV > 230 cm/s: ratio > 4.0: ICA EDV > 100 cm/s. 5. Near occlusion= ICA PSV velocities may be low or undetectable: variable ratio and ICA EDV. 6. Total occlusion=unable to detect flow.
--- NOTE | 2022-11-19 09:04 | MM ---
Reason for Exam: Screening (asymptomatic). Last mammogram was performed 5 year(s) and 6 month(s) ago. Patient History: Menarche at age 12. First Full-Term at age 15. Postmenopausal. Risk Values: Ruby 5 year model risk: 1.2%. NCI Lifetime model risk: 4.2%. Prior Study Comparison: 10/21/2014 Bilateral Screening Mammogram, [facility]. 12/09/2015 Bilateral Screening Mammogram, [facility]. 05/02/2017 Bilateral Screening Mammogram, [facility]. Tissue Density: There are scattered fibroglandular densities. Findings: Analyzed By CAD. There is no suspicious group of microcalcifications or new suspicious mass in either breast. Overall Assessment: Negative, BI-RAD 1 Management: Screening Mammogram of both breasts in 1 year. . Patient should continue monthly self-breast exams. A clinical breast exam by your physician is recommended on an annual basis. This exam should not preclude additional follow-up of suspicious palpable abnormalities. Note on Ruby scores and lifetime risk: 1. A Ruby score greater than 3% is considered moderate risk. If this is the case, consider specialist referral to assess eligibility for a risk reducing agent. 2. If overall lifetime risk for the development of breast cancer is 20% or higher, the patient may qualify for future screening with alternating mammogram and breast MRI. Electronically signed and approved by: Rod Martinez M.D. Radiologis
== END | disposition home or self-care (01) ==
LOC: RADMAMWWP 09:41
PROVIDERS: ATTEND Internal Medicine
DX: Z12.31 Encounter for screening mammogram for malignant neoplasm of breast (principal); I65.23 Occlusion and stenosis of bilateral carotid arteries; M81.0 Age-related osteoporosis without current pathological fracture; Z78.0 Asymptomatic menopausal state; F17.210 Nicotine dependence, cigarettes, uncomplicated
CPT/HCPCS: 77063; 77067; 77080; 93880

== ENCOUNTER → 2024-02-16 | Outpatient (CLI) | payer BC ==
--- NOTE | 2024-02-17 08:33 | CTL ---
EXAMINATION TYPE: CT Low Dose Lung DATE OF EXAM: 02/16/2024 5:02 PM COMPARISON: 11/25/2022 CLINICAL INDICATION: Female, 69 years old with history of Z12.2 LUNG CA SCR F17.210 CURRENT SMOKER, F /u for nicotine dependence of 1ppd x43 years. Current smoker, Hx of COPD., History of tobacco use. TECHNIQUE: Low Dose CT Lung Screening, Low dose computed tomography scan was performed through the est at 1 millimeter thick sections and reconstructed images in the coronal plane at 1 mm thick sectio ns. IV CONTRAST USED: None. SCREENING VISIT: First visit CT DLP: 128 mGycm, Automated exposure control for dose reduction was used. CT CTDI: 3.83 mGy FINDINGS: CT DIAGNOSTIC QUALITY: Satisfactory LUNG NODULES: Not presentLeft lung: no nodules identified.Right lung: no nodules identified. LUNGS: COPD: Severity: None Fibrosis: Severity:None Lymph nodes: None Other findings: None RIGHT PLEURAL SPACE: Effusion: None Calcification: None Thickening: None Pneumothorax: None LEFT PLEURAL SPACE: Effusion: None Calcification: None Thickening: None Pneumothorax: None HEART: Heart Size: Mildly enlarged Coronary calcification: Mild Pericardial effusion: None OTHER FINDINGS: Upper abdomen: No significant abnormality Bony thorax: Degenerative changes Supraclavicular region: No significant abnormalityOther: No significant abnormalityI IMPRESSION: 1. No clinically significant pulmonary nodules. 2. Mild emphysema. CT LUNG RAD AND CT CHEST RECOMMENDATION: Lung-Rad 1 Negative: Continue annual screening with LDCT in 12 months. S Modifier (other clinically significant findings): [facility], , 02/17/2024 8:31 AM
--- NOTE | 2024-02-17 12:14 | MM ---
Reason for Exam: Screening (asymptomatic). Last mammogram was performed 1 year(s) and 3 month(s) ago. Patient History: Menarche at age 12. First Full-Term at age 15. Postmenopausal. Risk Values: Ruby 5 year model risk: 1.2%. NCI Lifetime model risk: 3.9%. Prior Study Comparison: 12/09/2015 Bilateral Screening Mammogram, [facility]. 05/02/2017 Bilateral Screening Mammogram, [facility]. 11/18/2022 Bilateral MG 3D screening mammo w/cad, [facility]. Tissue Density: There are scattered areas of fibroglandular density. Findings: Analyzed By CAD. There is no suspicious group of microcalcifications or new suspicious mass in either breast. Overall Assessment: Benign, BI-RAD 2 Management: Screening Mammogram of both breasts in 1 year. . Patient should continue monthly self-breast exams. A clinical breast exam by your physician is recommended on an annual basis. This exam should not preclude additional follow-up of suspicious palpable abnormalities. Note on Ruby scores and lifetime risk: 1. A Ruby score greater than 3% is considered moderate risk. If this is the case, consider specialist referral to assess eligibility for a risk reducing agent. 2. If overall lifetime risk for the development of breast cancer is 20% or higher, the patient may qualify for future screening with alternating mammogram and breast MRI. [facility], , 02/17/2024 12:11 PM. Electronically signed and approved by: Rod Martinez M.D. Radiologis
== END | disposition home or self-care (01) ==
LOC: RADCTMAIN 15:33
PROVIDERS: ATTEND Internal Medicine
DX: Z12.31 Encounter for screening mammogram for malignant neoplasm of breast (principal); Z12.2 Encounter for screening for malignant neoplasm of respiratory organs; F17.210 Nicotine dependence, cigarettes, uncomplicated; J43.9 Emphysema, unspecified; Z78.0 Asymptomatic menopausal state; R92.323 Mammographic fibroglandular density, bilateral breasts
CPT/HCPCS: 71271; 77063; 77067

== ENCOUNTER → 2024-08-06 | Outpatient (CLI) | payer BC ==
[2024-08-06 15:32] LABS: Blood Urea Nitrogen 20.4 mg/dL (9.0-27.0); Calcium 9.1 mg/dL (8.7-10.3); Carbon Dioxide 26.5 mmol/L (21.6-31.8); Chloride 96 mmol/L (96-109); Glucose 105 mg/dL (70-110); Potassium 3.9 mmol/L (3.5-5.5); Sodium 138 mmol/L (135-145)
[2024-08-06 15:37] LABS: Basophils # (A) 0.08 X 10*3/uL (0.00-0.10); Basophils % (A) 0.8 %; Eosinophils # (A) 0.65 X 10*3/uL (0.04-0.35); Eosinophils % (A) 6.4 %; HCT 41.8 % (37.2-46.3); HGB 13.6 g/dL (12.0-15.0); Lymphocytes # (A) 3.11 X 10*3/uL (0.90-5.00); Lymphocytes % (A) 30.4 %; MCH 28.3 pg (27.0-32.0); MCHC 32.5 g/dL (32.0-37.0); MCV 86.9 FL (80.0-97.0); Mean Platelet Volume 9.3 FL (9.5-12.2); Monocytes % (A) 8.8 %; NRBC Per 100 WBC 0 X 10*3/uL (0.00-0.01); Neutrophils # (A) 5.46 X 10*3/uL (1.80-7.70); Neutrophils % (A) 53.3 %; Platelet Count 375 X 10*3/uL (140-440); RBC 4.81 X 10*6/uL (4.10-5.20); RBC Morphology Normal (Normal); RDW 13.3 % (11.5-14.5); WBC 10.23 X 10*3/uL (4.50-10.00)
== END | disposition home or self-care (01) ==
LOC: LABPAT 08:40
PROVIDERS: ATTEND Internal Medicine
DX: Z01.812 Encounter for preprocedural laboratory examination (principal); M23.91 Unspecified internal derangement of right knee
CPT/HCPCS: 36415; 80048; 85025

== ENCOUNTER 2024-08-17 09:01 | Day surgery (SDC) | payer BC ==
[2024-08-15 09:16] VITALS: BMI 37.8
--- NOTE | 2024-08-16 08:40 | P.HPOR ---
History of Present Illness H&P Date: 08/16/24 Chief Complaint: Right knee pain The patient is a 69-year-old female who presents with progressive right knee pain for the past year. She notes lateral pain along with catching and giving way. She has intermittent stiffness and swelling. She has tried medications in addition to an injection with only temporary partial relief. Review of Systems Per HPI Past Medical History Past Medical History: Heart Failure, COPD, Hyperlipidemia, Hypertension, Thyroid Disorder Additional Past Medical History / Comment(s): Pt recently admitted 02/29/16 with dyspnea secondary to acute exacerbation of COPD/acute on chronic CHF. History of Any Multi-Drug Resistant Organisms: None Reported Past Surgical History: Cholecystectomy, Orthopedic Surgery, Tonsillectomy Additional Past Surgical History / Comment(s): THYROIDECTOMY due to benign nodules, R shoulder arthroscopy, L foot bunionectomy,BIlateral carpal tunnel rel ease. COLONOSCOPY, Past Anesthesia/Blood Transfusion Reactions: Motion Sickness, Postoperative Nausea & Vomiting (PONV) Smoking Status: Current every day smoker - Past Family History Brother(s) Family Medical History: Cancer Additional Family Medical History / Comment(s): Patient has 1 brother that had a myocardial infarction in his 40s and a second brother had myocardial infarction at age 61. Sister(s) Family Medical History: Cancer Additional Family Medical History / Comment(s): Patient has one sister that 59 years of age with thyroid cancer. Mother Family Medical History: Hypertension Additional Family Medical History / Comment(s): Mother is 80yrs old. Father Family Medical History: Myocardial Infarction ([place]) Additional Family Medical History / Comment(s): Father of a massive [place] at the age of 57yrs. Daughter(s) Additional Family Medical History / Comment(s): One daughter with history of diabetes and palpitations. Patient has 2 sons with no major medical problems. Medications and Allergies Home Medications Medication Instructions Recorded Confirmed Type Atorvastatin [Lipitor] 40 mg PO HS 09/21/13 08/15/24 History Levothyroxine Sodium [Synthroid] 175 mcg PO HS 09/21/13 08/15/24 History Lisinopril-Hctz 10-12.5 mg 1 tab PO QAM 11/27/14 08/15/24 History [Zestoretic 10-12.5] Albuterol Nebulized [Ventolin 2.5 mg INHALATION RT-Q4H PRN 02/29/16 08/15/24 History Nebulized] Albuterol Sulfate [Proair Hfa] 1 - 2 puff INHALATION RT-Q4H PRN 02/29/16 08/15/24 History Cholecalciferol (Vitamin D3) 2,000 unit PO HS 02/23/17 08/15/24 History [Vitamin D3] Aspirin 81 mg PO HS 08/15/24 08/15/24 History Ezetimibe [Zetia] 10 mg PO HS 08/15/24 08/15/24 History Metoprolol Succinate (ER) [Toprol 50 mg PO HS 08/15/24 08/15/24 History Xl] Multivit with Calcium,Iron,Min 1 each PO HS 08/15/24 08/15/24 History [Women's Multivitamin] Allergies Allergy/AdvReac Type Severity Reaction Status Date / Time No Known Allergies Allergy Verified 08/15/24 08:55 Physical Examination - Knee right Appearance: effusion Effusion grade: grade 2 Valgus alignment in stance: 5 degrees Tenderness with palpation: anterior, lateral Pain: throughout ROM Gait: limping ROM: extension: -10 degrees ROM: flexion: 100 degrees Crepitus with motion: Yes Strength: extension: 5/5 Strength: flexion: 5/5 Meniscal tests: lateral meniscal tests: positive, lateral joint line pain: positive Results The patient is a well-developed well-nourished female approximately 5 foot 1, 205 pounds of endomorphic habitus. HEENT exam is nonfocal, neck is supple. She has pain with passive motion of the right hip. Straight leg raise is negative. She is tender about the lateral joint line of the right knee. Collaterals are stable, Kate's negative, Dg's elicits lateral pain. Her distal neurovascular exam appears intact in the right lower extremity. - Diagnostic results Knee MRI: image reviewed (Neurotomy of the right knee shows evidence of a lateral meniscal tear along with increased signal involving the posterior horn of the medial meniscus.) Assessment and Plan Assessment: Right knee internal derangementsymptomatic lateral meniscal tear Right knee lateral compartment osteoarthrosis Plan: I talked to the patient at length regarding her condition along with treatment options. At this point she is quite symptomatic despite conservative measures. After a thorough discussion she opts to proceed with surgery. We will plan to proceed with right knee arthroscopy with probable partial lateral meniscectomy. Risks and benefits were discussed at length in layman's terms. We will likely perform that as an outpatient procedure.
[2024-08-17] MEDS ORDERED: MIDAZOLAM 2 MG/2 ML VIAL IV PRN (09:22)
[2024-08-17] MEDS ORDERED: HYDROmorphone 0.5 MG/0.5 ML SYRINGE IVP PRN (09:22)
[2024-08-17] MEDS: IV FLUID CONTINUATION 1,000 ML IV ONE (09:25)
[2024-08-17] MEDS: LACTATED RINGERS 1,000 ML IV SCH (09:41)
[2024-08-17] MEDS: ONDANSETRON 4 MG/2 ML VIAL IVP ONE (09:59)
[2024-08-17] MEDS: DEXAMETHASONE SOD PHOSPHATE 4 MG/ML 1 ML VIAL IV ONE (10:00)
[2024-08-17] MEDS: SCOPOLAMINE 1 MG/72 HR PATCH TRANSDERM STA (10:04)
[2024-08-17] MEDS: FAMOTIDINE 20 MG/2 ML VIAL IV STA (10:08)
[2024-08-17] MEDS ORDERED: HYDROmorphone (PF) 1 MG/ML ONE (10:32)
[2024-08-17] MEDS ORDERED: MIDAZOLAM 2 MG/2 ML VIAL ONE (10:32)
[2024-08-17] MEDS ORDERED: fentaNYL (PF) 50 MCG/ML 2 ML AMP ONE (10:32)
[2024-08-17] MEDS ORDERED: LIDOCAINE 1% INJ 10MG/ML (20 ML MDV) ONE (10:32)
[2024-08-17] MEDS ORDERED: KETOROLAC 15 MG/ML 1 ML VIAL ONE (10:32)
[2024-08-17] MEDS ORDERED: LABETALOL 5 MG/ML VIAL MDV ONE (10:32)
[2024-08-17] MEDS: ceFAZolin 2 GM in DEXTROSE 5% IN WATER 50 ML IVPB PRN (10:32)
[2024-08-17] MEDS ORDERED: PROPOFOL 10 MG/ML 20 ML VIAL IV ONE (10:32)
--- NOTE | 2024-08-17 11:23 | P.OP ---
Date of Procedure: 08/17/24 Preoperative Diagnosis: Right knee internal derangement Postoperative Diagnosis: Macerated right knee middle one third lateral meniscal tear/grade 4 chondral injury distal lateral aspect lateral femoral condyle 10 x 8 mm Procedure(s) Performed: Right knee arthroscopic partial lateral meniscectomy/microfracture lateral femoral condyle Anesthesia: [facility] Surgeon: Hermelindo Tomlinson Estimated Blood Loss (ml): 10 Pathology: none sent Condition: stable Disposition: PACU Indications for Procedure: The patient is a 69-year-old female who presents with progressive right knee pain and mechanical symptoms despite conservative measures. A discussion of the risks and benefits of operative intervention versus continued conservative measures was made with the patient. She opted to proceed with surgery. Operative risks include infection, neurovascular injury, development of blood clots, possible incomplete resolution of symptoms, possible worsening of symptoms and possible need for subsequent procedures was discussed. Informed consent was obtained. Operative Findings: As below Description of Procedure: The patient was brought to the operating room, and after induction of general anesthesia examined the right knee. Collaterals were stable, Kate was negative, and posterior drawer was negative. The right lower extremity was prepped and draped in a normal fashion. A superior lateral portal was made through a 3 mm skin incision superior and lateral to the patella. This was used for outflow. A lateral portal was made through a 5 mm vertical skin incision lateral to the patella tendon above the joint line. Diagnostic arthroscopy was performed. On inspection of the medial compartment, there was some fraying involving the posterior horn the medial meniscus in the white-white junction. The remaining medial meniscus was stable and intact. This was debrided back to stable base with straight baskets and a motorized shaver. On inspection of the notch, the anterior cruciate ligament appeared to be intact. On inspection of the lateral compartment, a macerated tear involve the middle one third of the lateral meniscus in the white-red junction was noted. This was debrided back to stable base with a motorized shaver and straight baskets. The remaining lateral meniscus was stable and intact. A grade 4 chondral defect was noted involving the lateral distal aspect of the lateral femoral condyle measuring 8 x 10 mm. Microfracture was performed utilizing a power pick breaching the subchondral surface down to the bone marrow elements to facilitate healing. On inspection of the patellofemoral articulation, there was grade 23 chondral changes diffusely. The gutters were clear debris. The knee was then thoroughly irrigated. The portals were closed with Steri-Strips. A sterile dressing was applied in addition to a compression stocking. The patient was awoken from general anesthesia and transferred to recovery room in good condition. Blood loss was estimated at 10 mL. No complications were incurred.
[2024-08-17 11:31] VITALS: TEMP 97.1
[2024-08-17] MEDS: droPERidol 2.5 MG/ML VIAL IVP ONE (12:23)
[2024-08-17 14:04] VITALS: RESP 18
[2024-08-17 14:25] VITALS: BP 132/67; PULSE 78
== END 2024-08-17 14:34 | disposition home or self-care (01) ==
LOC: OR 09:01
PROVIDERS: ATTEND Orthopaedic Surgery
DX: S83.281A Other tear of lateral meniscus, current injury, right knee, initial encounter (principal); M17.11 Unilateral primary osteoarthritis, right knee; I50.9 Heart failure, unspecified; I11.0 Hypertensive heart disease with heart failure; J44.9 Chronic obstructive pulmonary disease, unspecified; F17.210 Nicotine dependence, cigarettes, uncomplicated; E07.9 Disorder of thyroid, unspecified; E78.5 Hyperlipidemia, unspecified; Z90.49 Acquired absence of other specified parts of digestive tract; Z90.89 Acquired absence of other organs; Z82.49 Family history of ischemic heart disease and other diseases of the circulatory system; Z79.890 Hormone replacement therapy; Z79.02 Long term (current) use of antithrombotics/antiplatelets; Z79.51 Long term (current) use of inhaled steroids; Z79.899 Other long term (current) drug therapy; X58.XXXA Exposure to other specified factors, initial encounter
CPT/HCPCS: 29881; 29879; J2250; J1100; J0690; J2405; J2003; J3010; J1171; J1885; J2704; J1920; J1790; J1308